=== PATIENT | female | born 1935 | race Caucasian/White ===

== ENCOUNTER 2016-11-22 07:45 | Inpatient (IN) | payer OTHER ==
--- NOTE | 2016-11-22 07:57 | PDOC ---
History of Present Illness - General Chief Complaint: Pain, Acute Stated Complaint: ABD PAIN Time Seen by Provider: 11/22/16 07:57 - History of Present Illness Initial Comments: 11/22/16 08:02 The patient is a 78 y/o female with a PMHx of C.diff., anemia, bowel obstructions, GI bleeds, chronic UTIs, DM, who presents to the ER complaining of one episode of vomiting this morning. The pt states that her nurse aid gave her pasta and banana that didn't taste good. The pt is also complaining of mild chest pain, 2/10, pressure like, mid sternal that started at night. It is associated with SOB. SHe denies cough, palpitations, dizziness. The pt denies abdominal pain, cjhest pain, SOB, cough. She denies fever, chills. Past History - Past Medical History Allergies/Adverse Reactions: Allergies Allergy/AdvReac Type Severity Reaction Status Date / Time No Known Allergies Allergy Verified 11/22/16 07:57 Home Medications: Ambulatory Orders Carbidopa/Levodopa [Carbidopa-Levodopa 25-100 Tab] 1 each PO QID 05/14/16 Cyanocobalamin (Vitamin B-12) [Vitamin B-12] 1,000 mcg PO DAILY 05/14/16 Ferrous Sulfate 325 mg PO DAILY 05/14/16 Mirtazapine 30 mg PO DAILY 05/14/16 Quetiapine Fumarate [Seroquel -] 12.5 mg PO HS 05/14/16 Acetaminophen [Tylenol -] 1,000 mg PO Q6H PRN #100 tablet 05/15/16 Dextromethorphan Polistirex [Delsym] 30 mg PO BID #100 ml 05/15/16 Anemia: Yes Asthma: No Cancer: Yes (cervical, gallbladder) Cardiac Disorders: Yes (htn) CVA: No COPD: No CHF: No Dementia: No Diabetes: Yes (no meds) GI Disorders: Yes (EGD) Disorders: No HTN: Yes (no meds) Hypercholesterolemia: Yes HIV: No Kidney Stones: Yes Liver Disease: No Psychiatric Problems: Yes (depression) Suicide Attempt (Hx): No Seizures: No Thyroid Disease: No - Surgical History Abdominal Surgery: Yes (colon resec 2013) Appendectomy: No Cardiac Surgery: No Cholecystectomy: Yes Lung Surgery: No Neurologic Surgery: No - Immunization History Td Vaccination: Yes TDAP Vaccination: Yes Immunization Up to Date: Yes - Psycho/Social/Smoking Cessation Hx Anxiety: No Suicidal Ideation: No Smoking Status: No Smoking History: Never smoked Years of Tobacco Use: 0 Have you smoked in the past 12 months: No Number of Cigarettes Smoked Daily: 0 Cigars Per Day: 0 Information on smoking cessation initiated: No Hx Alcohol Use: No Drug/Substance Use Hx: No Substance Use Type: None Hx Substance Use Treatment: No Review of Systems - Review of Systems Able to Perform ROS?: Yes Comments:: 11/22/16 08:33 REVIEW OF SYSTEMS CONSTITUTIONAL: Absent: fever, chills, diaphoresis, generalized weakness, malaise, loss of appetite, weight change HEENT: Absent: rhinorrhea, nasal congestion, throat pain, throat swelling, difficulty swallowing CARDIOVASCULAR: chest pain Absent: syncope, palpitations, irregular heart rate, lightheadedness, peripheral edema RESPIRATORY: shortness of breath Absent: cough, dyspnea with exertion, orthopnea, wheezing, stridor, hemoptysis GASTROINTESTINAL: Absent: abdominal pain, abdominal distension, nausea, vomiting, diarrhea, constipation, melena, hematochezia GENITOURINARY: Absent: dysuria, frequency, urgency, hesitancy, hematuria, flank pain, genital pain MUSCULOSKELETAL: Absent: myalgia, arthralgia, joint swelling, back pain, neck pain SKIN: Absent: rash, itching, pallor NEUROLOGIC: Absent: headache, focal weakness or paresthesias, dizziness, unsteady gait, seizure, mental status changes PSYCHIATRIC: Absent: anxiety, depression *Physical Exam - Vital Signs Last Vital Signs Temp Pulse Resp BP Pulse Ox 98.4 F 75 20 164/77 97 11/22/16 07:49 11/22/16 07:49 11/22/16 07:49 11/22/16 07:49 11/22/16 07:49 - Physical Exam Comments: 11/22/16 08:34 GENERAL: The patient is awake, alert, and fully oriented, in no acute distress. HEAD: Normal with no signs of trauma. EYES: extraocular movements intact, sclera anicteric, conjunctiva clear. No ptosis. ENT: oropharynx clear without exudates, moist mucous membranes. NECK: Trachea midline, full range of motion, supple. LUNGS: Breath sounds equal, clear to auscultation bilaterally, no wheezes, no crackles, no accessory muscle use. HEART: Regular rate and rhythm, S1, S2 without murmur, rub or gallop. ABDOMEN: Soft, nontender, nondistended, normoactive bowel sounds, no guarding, no rebound, no hepatosplenomegaly, no masses. EXTREMITIES: warm, well-perfused, no edema. NEUROLOGICAL: Normal speech, no facial asymmetry, gait not observed. PSYCH: Normal mood, normal affect. SKIN: Warm, dry, normal turgor ED Treatment Course - LABORATORY CBC & Chemistry Diagram: 11/22/16 08:30 11/22/16 08:16 Medical Decision Making - Medical Decision Making 11/22/16 08:35 The pt is a 81 year old female who presents with mild chest pain and vomiting x 1. We ordered cardiac profile, EKG, CBC, CMP, UA, NS 1 L. 11/22/16 10:53 EKG: NSR at 72, left axis deviation, left ventricular hypertrophy, flat T-wave in 1, aVL, V6, early R-wave progression, poor R wave progression, no ST changes Th pt was found to have UTI. She was given Rocephin. The pt was accepted by hospitalist to observation telemetry. *DC/Admit/Observation/Transfer Diagnosis at time of Disposition: UTI (lower urinary tract infection), Chest pain
[2016-11-22] MEDS ORDERED: SODIUM CHLORIDE 1,000 ML IV STA (08:07)
[2016-11-22 08:41] LABS: MCH 30.8 pg (25.7-33.7); MCHC 32.6 g/dl (32.0-36.0); MEAN CELL VOLUME 94.6 fl (80-96); MEAN PLT VOLUME 10.8 fl (7.5-11.1); RDW 14.1 % (11.6-15.6); WHITE BLOOD COUNT 5.2 K/mm3 (4.0-10.0)
--- NOTE | 2016-11-22 08:43 | PDOC ---
Attending Attestation - Medical Decision Making 11/22/16 09:24 Radiology report: CXR Impression: Chronically deformed shoulders with degenerative changes. Sclerotic unfolded aorta. Weak inspiration. No acute pathology. No change since 05/14/2016. Reported by Rayo Maldonado MD Reviewed by Dr. Santana <Betzaida Hinojosa - Last Filed: 11/22/16 09:24> - Resident Resident Name: Ольга Shirley - ED Attending Attestation I have performed the following: I have examined & evaluated the patient, The case was reviewed & discussed with the resident, I agree w/resident's findings & plan, Exceptions are as noted - HPI HPI: 11/22/16 08:47 The patient is a 81-year-old female, with a significant past medical history of diabetes, status post colon resection, who presents to the emergency department with constant chest pressure that began last night, after eating. She reports nausea with 1 episode of vomiting this morning. - Physicial Exam PE: 11/22/16 08:43 The patient is well-appearing and in no acute distress Abdomen is soft and nontender EKG noted: Normal sinus rhythm at 72, left axis deviation, left ventricular hypertrophy, flat T-wave in 1, aVL, V6, early R-wave progression, poor R wave progression, no ST changes 11/22/16 08:48 11/22/16 09:21 Chest x-ray noted, no acute cardiopulmonary disease CBC noted Urinalysis noted, with 3+ leukocyte esterase Chemistries pending - Medical Decision Making 11/22/16 08:48 She is well-appearing and in no acute distress Labs and chest x-ray ordered 11/22/16 09:39 Urinalysis noted, with bacteriuria and pyuria Will administer IV ceftriaxone 11/22/16 10:09 Labs noted Clinical impression: Intermittent chest pain, possible acute coronary syndrome Urinary tract infection Will place on observation for further evaluation and treatment Case discussed in detail with admitting provider including history, physical exam and ancillary studies. Admitting physician has assumed care for the patient, will follow all pending diagnostics and will complete the evaluation and treatment. <Rayo Santana - Last Filed: 11/22/16 10:09> Discharge Disposition - Discharge Dispostion Last Admission D/C Date: 12/03/13 Admit: Yes <Rayo Santana - Last Filed: 11/22/16 10:09> - Diagnosis UTI (lower urinary tract infection), Chest pain
[2016-11-22 09:09] LABS: URINE APPEARANCE CLOUDY; URINE BILIRUBIN NEGATIVE (NEGATIVE); URINE BLOOD NEGATIVE (NEGATIVE); URINE COLOR YELLOW; URINE GLUCOSE (UA) NEGATIVE (NEGATIVE); URINE KETONE TRACE (NEGATIVE); URINE NITRITE POSITIVE (NEGATIVE); URINE PROTEIN NEGATIVE (NEGATIVE); URINE UROBILINOGEN NEGATIVE E.U./dl (0.2-1.0)
[2016-11-22 09:18] LABS: URINE LEUK ESTERASE 3+ (NEGATIVE)
[2016-11-22 09:26] LABS: URINE BACTERIA MANY /hpf (NONE SEEN); URINE HYALINE CAST 3 /lpf; URINE MUCUS RARE; URINE RBC 2 /hpf (0-3); URINE WBC 454 /hpf (3-5)
[2016-11-22] MEDS ORDERED: CEFTRIAXONE 1 GM in DEXTROSE 5%-WATER - 50 ML IVPB ONE (09:39)
[2016-11-22] MEDS ORDERED: CEFTRIAXONE 50 ML ONE (09:42)
[2016-11-22 10:00] LABS: ALBUMIN 3.7 g/dl (3.4-5.0); ANION GAP 10 (8-16); BILIRUBIN,TOTAL 0.6 mg/dL (0.2-1.0); CO2 28 mmol/L (21-32); CREATININE 0.8 mg/dL (0.55-1.02); GLUCOSE,RANDOM 156 mg/dL (74-106); SGPT/ALT 14 U/L (12-78); TOT PROT 7.9 g/dl (6.4-8.2)
[2016-11-22 10:01] LABS: ALK PHOS 153 U/L (45-117)
[2016-11-22 10:02] LABS: SGOT/AST 32 U/L (15-37)
[2016-11-22 10:18] LABS: TROPONIN I < 0.02 ng/ml (0.00-0.05)
[2016-11-22 13:10] LABS: PLATELET COUNT 161 K/MM3 (134-434)
[2016-11-22 13:11] LABS: PLATELET COMMENT2 FEW LARGE PLTS; PLATELET ESTIMATE ADEQUATE (NORMAL)
--- NOTE | 2016-11-22 14:32 | HP ---
CHIEF COMPLAINT: chest pain and nausea PCP: Dr. Aide Patino HISTORY OF PRESENT ILLNESS: 81 yo F with PMH anemia, CDiff, bowel obstruction s/ p colon resection (2013), GI bleed, chronic UTI, diet-controlled NIDDM, cervical CA s/p hysterectomy, gallbladder CA s/p cholecystectomy and radiation, HTN, HLD, GERD, depression, mild dementia, sacral decubitus ulcer, and Parkinson 's presents to ED today with one episode of nausea without vomiting this morning. To this provider, patient stated she had substernal chest pain this morning while her health aide was turning her, without aggravating or alleviating factors, that was accompanied by SOB. She currently denies CP, SOB, N/V, abdominal pain, fever, or chills. ER course was notable for: (1) Troponin <0.02; EKG NSR at 72, left axis deviation, left ventricular hypertrophy, no ST changes (2) UA with 3+ leukocyte esterase and WBC 454 Recent Travel: No PAST MEDICAL HISTORY: anemia, CDiff, bowel obstruction, GI bleed, chronic UTI, diet-controlled NIDDM, cervical and gallblader CA with radiation, HTN, HLD, GERD , depression, mild dementia, sacral decubitus ulcer, Parkinson's PAST SURGICAL HISTORY: colon resection 2013, cholecystectomy, hysterectomy Social History: Lives in senior apartment complex with 24-hour health aide. 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 Smoking: Never smoked Alcohol: No Drugs: No Family History: mother and several siblings with MIs and heart failure Allergies: No Known Allergies Allergy (Verified 11/22/16 07:57) HOME MEDICATIONS: Home Medications Medication Instructions Recorded Carbidopa/Levodopa 1 each PO QID 05/14/16 [Carbidopa-Levodopa 25-100 Tab] Cyanocobalamin (Vitamin B-12) 1,000 mcg PO DAILY 05/14/16 [Vitamin B-12] Ferrous Sulfate 325 mg PO DAILY 05/14/16 Mirtazapine 30 mg PO DAILY 05/14/16 Quetiapine Fumarate [Seroquel -] 12.5 mg PO HS 05/14/16 Acetaminophen [Tylenol -] 1,000 mg PO Q6H PRN #100 tablet 05/15/16 Dextromethorphan Polistirex 30 mg PO BID #100 ml 05/15/16 [Delsym] REVIEW OF SYSTEMS CONSTITUTIONAL: Absent: fever, chills, diaphoresis, weakness, malaise, loss of appetite, weight change HEENT: Absent: rhinorrhea, nasal congestion, throat pain, throat swelling, difficulty swallowing, mouth swelling, ear pain, eye pain, visual changes CARDIOVASCULAR: chest pain Absent: syncope, palpitations, irregular heart rate, lightheadedness, peripheral edema RESPIRATORY: shortness of breath Absent: cough, dyspnea with exertion, orthopnea, wheezing, stridor, hemoptysis GASTROINTESTINAL: abdominal pain, nausea, vomiting Absent: abdominal distension, diarrhea, constipation, melena, hematochezia GENITOURINARY: Absent: dysuria, frequency, urgency, hesitancy, hematuria, flank pain, genital pain MUSCULOSKELETAL: Absent: myalgia, arthralgia, joint swelling, back pain, neck pain SKIN: Absent: rash, itching, pallor HEMATOLOGIC/IMMUNOLOGIC: Absent: easy bleeding, easy bruising, lymphadenopathy, frequent infections ENDOCRINE: Absent: unexplained weight gain, unexplained weight loss, heat intolerance, cold intolerance NEUROLOGIC: + subjective left arm weakness, + bowel and bladder incontinence at baseline, periods of confusion at baseline Absent: headache, dizziness, unsteady gait, seizure PSYCHIATRIC: depression Absent: anxiety, suicidal or homicidal ideation, hallucinations. PHYSICAL EXAMINATION Vital Signs - 24 hr 11/22/16 11/22/16 11/22/16 07:49 09:24 10:00 Temperature 98.4 F 97.4 F L Pulse Rate 75 Pulse Rate [ 72 Left Radial] Respiratory 20 18 Rate Blood Pressure 164/77 Blood Pressure 173/87 [Left Arm] O2 Sat by Pulse 97 98 96 Oximetry (%) 11/22/16 13:14 Temperature Pulse Rate Pulse Rate [ 70 Left Radial] Respiratory Rate Blood Pressure Blood Pressure 160/79 [Left Arm] O2 Sat by Pulse 95 Oximetry (%) GENERAL: Awake, alert, in no acute distress. Oriented to person only. HEAD: Normal with no signs of trauma. EYES: Pupils equal, round and reactive to light, extraocular movements intact, sclera anicteric, conjunctiva clear. No lid lag. EARS, NOSE, THROAT: Ears normal, nares patent, oropharynx clear without exudates. Moist mucous membranes. NECK: Normal range of motion, supple without lymphadenopathy, JVD, or masses. LUNGS: Breath sounds equal, clear to auscultation bilaterally. No wheezes, and no crackles. No accessory muscle use. HEART: Regular rate and rhythm, normal S1 and S2 without murmur, rub or gallop. ABDOMEN: Soft, nontender, not distended, normoactive bowel sounds, no guarding, no rebound, no masses. No hepatomegaly or splenomegaly. MUSCULOSKELETAL: Normal range of motion at all joints. No bony deformities or tenderness. No CVA tenderness. UPPER EXTREMITIES: 2+ pulses, warm, well-perfused. No cyanosis. No clubbing. No peripheral edema. Muscle strength 4/5 LOWER EXTREMITIES: 2+ pulses, warm, well-perfused. No calf tenderness. No peripheral edema. Muscle strength 4/5 NEUROLOGICAL: Cranial nerves II-XII intact. Normal speech. Gait not observed. GCS: E 4, V 4, M 6 = 14 PSYCHIATRIC: Cooperative. Good eye contact. Appropriate mood and affect. SKIN: Warm, dry, normal turgor, no rashes or lesions noted, normal capillary refill, + old surgical scar to abdomen Laboratory Tests 11/22/16 11/22/16 11/22/16 08:16 08:30 08:59 WBC 5.2 RBC 4.85 D Hgb 14.9 D Hct 45.9 H D MCV 94.6 MCHC 32.6 RDW 14.1 Plt Count 161 D MPV 10.8 Platelet Estimate Adequate Platelet Comment Few large plts Sodium 142 Potassium 5.1 D Chloride 104 Carbon Dioxide 28 Anion Gap 10 BUN 23 H D Creatinine 0.8 D Creat Clearance w eGFR > 60 Random Glucose 156 H Calcium 9.0 Total Bilirubin 0.6 AST 32 D ALT 14 D Alkaline Phosphatase 153 H D Creatine Kinase 106 Troponin I < 0.02 Total Protein 7.9 Albumin 3.7 Urine Color Yellow Urine Appearance Cloudy Urine pH 5.0 D Ur Specific [place] 1.016 Urine Protein Negative Urine Glucose (UA) Negative Urine Ketones Trace H Urine Blood Negative Urine Nitrite Positive Urine Bilirubin Negative Urine Urobilinogen Negative Ur Leukocyte Esterase 3+ H Urine RBC 2 Urine WBC 454 Ur Epithelial Cells Rare Urine Bacteria Many Hyaline Casts 3 Urine Mucus Rare ASSESSMENT/PLAN: 81 yo F with PMH anemia, bowel obstruction s/p colon resection , GI bleed, chronic UTI, CDiff, diet-controlled NIDDM, cervical and gallbladder CA, HTN, HLD, GERD, depression, dementia, and Parkinson's, being placed on observation for chest pain and UTI. 1. Chest Pain --clinically improved, pain and SOB have resolved --r/o ACS: first troponin negative, two pending; ECG not suggestive of acute ischemic event; serial ECG;s; CXR unremarkable; telemetry monitoring; echo ordered; cardiology consult requested; will keep NPO if cardiology wants to stress tomorrow --r/p PE: Wells score low to intermediate since we don't know if patient has an active malignancy (h/o multiple cancers); will get d-dimer --r/o GI etiology: h/o GERD, will start protonix 2. Pyuria --no fever, no leukocytosis, denies symptoms but poor historian, WBCs 454 --ceftriaxone x 1 given in ED --will continue ceftriaxone for now --cultures pending 3. Nausea/Vomiting --resolved 4. NIDDM --diet-controlled, on no home meds --Novolog sliding scale coverage 5. Parkinson's --at baseline --continue Sinemet 6. Depression --hold Remeron for now to assess mental status 7. DVT prophylaxis --SCDs, oob, ambulation 8. F/E/N - Fluids: PO intake adequate - Electrolytes: Monitor and replace as needed - Nutrition: Diabetic, low-sodium diet. Dispo: continues to require observation. Full code. Visit type - Emergency Visit Emergency Visit: Yes ED Registration Date: 11/22/16 Care time: The patient presented to the Emergency Department on the above date and was hospitalized for further evaluation of their emergent condition. - New Patient This patient is new to me today: No - Critical Care Critical Care patient: No
--- NOTE | 2016-11-22 16:15 | EKG ---
Test Reason : Blood Pressure : / mmHG Vent. Rate : 069 BPM Atrial Rate : 069 BPM P-R Int : 154 ms QRS Dur : 096 ms QT Int : 420 ms P-R-T Axes : 027 -31 041 degrees QTc Int : 450 ms POOR DATA QUALITY, INTERPRETATION MAY BE ADVERSELY AFFECTED NORMAL SINUS RHYTHM LEFT AXIS DEVIATION MINIMAL VOLTAGE CRITERIA FOR LVH, MAY BE NORMAL VARIANT ABNORMAL ECG WHEN COMPARED WITH ECG OF 14-MAY-2016 20:27, NO SIGNIFICANT CHANGE WAS FOUND Confirmed by ARCHIE ALMENDAREZ MD ([id number]) on 11/22/2016 4:15:40 PM Referred By: Confirmed By:ARCHIE ALMENDAREZ MD
[2016-11-22] MEDS: INSULIN SLIDING SCALE (NOVOLOG) 1 VIAL SQ SCH ×2 (16:19→22:38)
[2016-11-22] MEDS ORDERED: CARBIDOPA/LEVODOPA 25/100 TABLET (FP) ONE (16:22)
[2016-11-22] MEDS ORDERED: INSULIN REGULAR HUMAN 100 UNITS/ML *VIAL ONE (16:22)
--- NOTE | 2016-11-22 17:57 | CON.CARD ---
Cardiology Consult (text) - Consultation Consultation Note: CC: cp 81 yo F with PMH HTN, HLD,, anemia, CDiff, bowel obstruction s/p colon resection in 2013, GI bleed, chronic UTI, diet-controlled NIDDM, cervical CA s/ p hysterectomy, gallbladder CA s/p cholecystectomy and radiation, GERD, depression, mild dementia/Parkinson's, sacral decubitus ulcer, presents with CP in setting of nausea/abdominal pain. Episode of nausea this morning. Was unable to vomit. + abdominal pain and dizziness at the time. Subsequently became agitated and developed sob/cp. History may be unreliable as patient can't provide further details about cp and daughter received information second hand. By the time she arrived at the ER, symptoms had resolved. Wheelchair bound at baseline. Denies recent sob, palps, orthopnea, pnd, worsened LE edema (intermittent, mild at baseline), bleeding. Denies recent f/c/s, preceding GI sx's, cough, congestion, recent poor po intake , headache, visual disturbances. PAST MEDICAL HISTORY: anemia, CDiff, bowel obstruction, GI bleed, chronic UTI, diet-controlled NIDDM, cervical and gallblader CA with radiation, HTN, HLD, GERD , depression, mild dementia, sacral decubitus ulcer, Parkinson's PAST SURGICAL HISTORY: colon resection 2014, cholecystectomy, hysterectomy Social History: Lives in senior apartment complex with 24-hour health aide. 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 Smoking: Never smoked Alcohol: No Drugs: No Family History: mother and several siblings with MIs and heart failure Ambulatory Orders Carbidopa/Levodopa [Carbidopa-Levodopa 25-100 Tab] 1 each PO QID 05/14/16 Cyanocobalamin (Vitamin B-12) [Vitamin B-12] 1,000 mcg PO DAILY 05/14/16 Ferrous Sulfate 325 mg PO DAILY 05/14/16 Mirtazapine 30 mg PO DAILY 05/14/16 Quetiapine Fumarate [Seroquel -] 12.5 mg PO HS 05/14/16 Acetaminophen [Tylenol -] 1,000 mg PO Q6H PRN #100 tablet 05/15/16 Dextromethorphan Polistirex [Delsym] 30 mg PO BID #100 ml 05/15/16 Current Medications Carbidopa/Levodopa (Sinemet 25/100 -) 1 each PO QID [facility] Ferrous Sulfate (Feosol -) 325 mg PO DAILY [facility] Pantoprazole Sodium (Protonix 40mg Ivpb (Pre-Docked)) 100 mls @ 200 mls/hr IVPB DAILY [facility] Ceftriaxone Sodium (Rocephin 1gm Ivpb (Pre-Docked)) 50 mls @ 100 mls/hr IVPB DAILY [facility] Insulin Aspart (Novolog Vial Sliding Scale -) 1 vial SQ ACHS [facility] PRN Reason: Protocol Last Admin: 11/22/16 16:19 Dose: 2 unit Vital Signs - 24 hr 11/22/16 11/22/16 11/22/16 07:49 09:24 10:00 Temperature 98.4 F 97.4 F L Pulse Rate 75 Pulse Rate [ 72 Left Radial] Respiratory 20 18 Rate Blood Pressure 164/77 Blood Pressure 173/87 [Left Arm] O2 Sat by Pulse 97 98 96 Oximetry (%) 11/22/16 13:14 Temperature Pulse Rate Pulse Rate [ 70 Left Radial] Respiratory Rate Blood Pressure Blood Pressure 160/79 [Left Arm] O2 Sat by Pulse 95 Oximetry (%) Intake & Output 11/20/16 11/21/16 11/22/16 11/23/16 07:59 07:59 07:59 07:59 Weight 201 lb NAD, calm JVD flat, neck supple RRR nl s1, s2 no mrg bibasilar dullness vs. poor effort ext with trace dependent edema. no cyanosis or clubbing + bs soft nt nd + dp/pt no jaundice, diaphoresis no carotid bruit CBC, BMP 11/22/16 08:30 11/22/16 08:16 Laboratory Tests 11/22/16 11/22/16 11/22/16 08:16 08:59 17:30 D-Dimer Total Bilirubin 0.6 AST 32 D ALT 14 D Alkaline Phosphatase 153 H D Troponin I < 0.02 B-Natriuretic Peptide 121.34 Albumin 3.7 Urine Nitrite Positive Ur Leukocyte Esterase 3+ H 11/22/16 11/22/16 17:30 17:30 D-Dimer 227 Total Bilirubin AST ALT Alkaline Phosphatase Troponin I < 0.02 B-Natriuretic Peptide Albumin Urine Nitrite Ur Leukocyte Esterase tele sr, pvc EKG: nsr, lad, lvh. no acute ischemic changes CXR: elevated rt hemidiaphragm, no acute infiltrate. echo 2013: nl lv/rv size/fn. E A reversal, mod MR. 81 yo F with PMH HTN, HLD,, anemia, CDiff, bowel obstruction s/p colon resection in 2014, GI bleed, chronic UTI, diet-controlled NIDDM, cervical CA s/ p hysterectomy, gallbladder CA s/p cholecystectomy and radiation, GERD, depression, mild dementia/Parkinson's, sacral decubitus ulcer, presents with CP in setting of nausea/abdominal pain. CP - atypical sx's. History unclear/unreliable. CE's neg x 2 and ekg without ischemic changes. Echo for further evaluation - d-dimer negative. - tx of underlying medical condition/uti per pmd. HTN - not on home anti-hypertensives. If bp remains elevated would start amlodipine 5 mg/day HL - not on statin, not unreasonable give age and comorbidities. defer to outpatient md.
[2016-11-22] MEDS: CARBIDOPA/LEVODOPA 25/100 TABLET (FP) PO SCH ×2 (18:17→22:38)
[2016-11-22] MEDS: FERROUS SO4 325 MG TABLET (FP) PO SCH (18:19)
[2016-11-22] MEDS ORDERED: PANTOPRAZOLE SODIUM 40 MG VIAL ONE (18:23)
[2016-11-22] MEDS: PANTOPRAZOLE SODIUM 100 ML IVPB SCH (18:32)
[2016-11-22 18:40] VITALS: BMI 28.8
[2016-11-23] MEDS: INSULIN SLIDING SCALE (NOVOLOG) 1 VIAL SQ SCH ×4 (06:08→22:19)
[2016-11-23 07:34] LABS: BASOPHIL 0.5 % (0-2.0); EOSINOPHIL 2.6 % (0-4.5); MCHC 33.2 g/dl (32.0-36.0); MEAN CELL VOLUME 93.5 fl (80-96); MEAN PLT VOLUME 10.7 fl (7.5-11.1); NEUTROPHILS 69.9 % (42.8-82.8); PLATELET COUNT 158 K/MM3 (134-434); RDW 14.3 % (11.6-15.6)
[2016-11-23 07:52] LABS: ALBUMIN 3.3 g/dl (3.4-5.0); ANION GAP 8 (8-16); CALCIUM 8.5 mg/dL (8.5-10.1); CO2 27 mmol/L (21-32); CREATININE 0.7 mg/dL (0.55-1.02); GLUCOSE,RANDOM 136 mg/dL (74-106); MAGNESIUM 1.9 mg/dL (1.8-2.4); PHOSPHOROUS 2.6 mg/dL (2.5-4.9); SGOT/AST 16 U/L (15-37); SGPT/ALT 13 U/L (12-78)
[2016-11-23 07:53] LABS: ALK PHOS 135 U/L (45-117); BILIRUBIN,TOTAL 0.5 mg/dL (0.2-1.0); TOT PROT 6.8 g/dl (6.4-8.2)
--- NOTE | 2016-11-23 09:40 | DS ---
Physical Exam: SUBJECTIVE: Patient seen and examined. Having discomfort in right hand from blood draw. When asked if having chest pain, shakes head yes, but cannot elaborate on location, severity, or timing. OBJECTIVE: Vital Signs Period Temp Pulse Resp BP Sys/Ramírez Pulse Ox Last 24 Hr 97.4 F-98.1 F 70-88 20-20 124-163/66-107 95-98 PHYSICAL EXAM GENERAL: The patient is awake, alert, in no acute distress. Oriented to person and place. HEAD: Normal with no signs of trauma. EYES: PERRL, extraocular movements intact, sclera anicteric, conjunctiva clear. ENT: Ears normal, nares patent, oropharynx clear without exudates, moist mucous membranes. NECK: Trachea midline, full range of motion, supple. LUNGS: Breath sounds equal, clear to auscultation bilaterally, no wheezes, no crackles, no accessory muscle use. HEART: Regular rate and rhythm, S1, S2 without murmur, rub or gallop. ABDOMEN: Soft, nontender, nondistended, normoactive bowel sounds, no guarding, no rebound, no hepatosplenomegaly, no masses. EXTREMITIES: 2+ pulses throughout, warm, well-perfused, bilateral LE trace dependent edema NEUROLOGICAL: Cranial nerves II through XII grossly intact. Normal speech, gait not observed. LABS Laboratory Results - last 24 hr 11/22/16 11/22/16 11/22/16 16:16 17:30 17:30 WBC RBC Hgb Hct MCV MCHC RDW Plt Count MPV Neutrophils % Lymphocytes % Monocytes % Eosinophils % Basophils % D-Dimer Sodium Potassium Chloride Carbon Dioxide Anion Gap BUN Creatinine Creat Clearance w eGFR POC Glucometer [phone] Random Glucose Calcium Phosphorus Magnesium Total Bilirubin AST ALT Alkaline Phosphatase Troponin I < 0.02 B-Natriuretic Peptide 121.34 Total Protein Albumin 11/22/16 11/22/16 11/23/16 17:30 22:28 05:35 WBC 6.0 RBC 4.51 Hgb 14.0 Hct 42.2 MCV 93.5 MCHC 33.2 RDW 14.3 Plt Count 158 MPV 10.7 Neutrophils % 69.9 Lymphocytes % 19.9 D Monocytes % 7.1 Eosinophils % 2.6 D Basophils % 0.5 D-Dimer 227 Sodium Potassium Chloride Carbon Dioxide Anion Gap BUN Creatinine Creat Clearance w eGFR POC Glucometer 153 Random Glucose Calcium Phosphorus Magnesium Total Bilirubin AST ALT Alkaline Phosphatase Troponin I B-Natriuretic Peptide Total Protein Albumin 11/23/16 11/23/16 05:35 06:03 WBC RBC Hgb Hct MCV MCHC RDW Plt Count MPV Neutrophils % Lymphocytes % Monocytes % Eosinophils % Basophils % D-Dimer Sodium 140 Potassium 4.1 Chloride 105 Carbon Dioxide 27 Anion Gap 8 BUN 21 H Creatinine 0.7 Creat Clearance w eGFR > 60 POC Glucometer 156 Random Glucose 136 H Calcium 8.5 Phosphorus 2.6 Magnesium 1.9 D Total Bilirubin 0.5 AST 16 D ALT 13 Alkaline Phosphatase 135 H Troponin I B-Natriuretic Peptide Total Protein 6.8 Albumin 3.3 L HOSPITAL COURSE: Date of Admission:11/22/16 Date of Discharge: 11/23/16 Discharge Summary Reason For Visit: UTI,CHEST PAIN Current Active Problems Chest pain (Acute) UTI (lower urinary tract infection) (Acute) - Instructions Referrals: Aide Patino [Primary Care Provider] - - Home Medications Comprehensive Discharge Medication List: Ambulatory Orders Carbidopa/Levodopa [Carbidopa-Levodopa 25-100 Tab] 1 each PO QID 05/14/16 Cyanocobalamin (Vitamin B-12) [Vitamin B-12] 1,000 mcg PO DAILY 05/14/16 Ferrous Sulfate 325 mg PO DAILY 05/14/16 Mirtazapine 30 mg PO DAILY 05/14/16 Quetiapine Fumarate [Seroquel -] 12.5 mg PO HS 05/14/16 Acetaminophen [Tylenol -] 1,000 mg PO Q6H PRN #100 tablet 05/15/16
[2016-11-23] MEDS: FERROUS SO4 325 MG TABLET (FP) PO SCH (10:03)
[2016-11-23] MEDS: PANTOPRAZOLE SODIUM 100 ML IVPB SCH (10:03)
[2016-11-23] MEDS: CEFTRIAXONE 50 ML IVPB SCH (10:03)
[2016-11-23] MEDS: CARBIDOPA/LEVODOPA 25/100 TABLET (FP) PO SCH ×4 (10:03→22:19)
[2016-11-23 11:30] LABS: TROPONIN I < 0.02 ng/ml (0.00-0.05)
--- NOTE | 2016-11-23 12:01 | PN ---
Progress Note (short form) - Note Progress Note: s: no cp sob palps dizzy o: Vital Signs Period Temp Pulse Resp BP Sys/Ramírez Pulse Ox Last 24 Hr 97.4 F-98.1 F 70-88 20-20 124-163/66-107 95-98 NAD, calm JVD flat, neck supple RRR nl s1, s2 no mrg bibasilar dullness vs. poor effort ext with trace dependent edema. no cyanosis or clubbing + bs soft nt nd no jaundice, diaphoresis awake, alert, mildly confused Current Medications Generic Name Dose Route Start Last Admin Trade Name Freq PRN Reason Stop Dose Admin Carbidopa/Levodopa 1 each 11/22/16 18:00 11/23/16 10:03 Sinemet 25/100 - PO 1 each QID MIMI Administration Ferrous Sulfate 325 mg 11/22/16 15:00 11/23/16 10:03 Feosol - PO 325 mg DAILY MIMI Administration Pantoprazole Sodium 100 mls @ 200 mls/hr 11/22/16 17:15 11/23/16 10:03 Protonix 40mg Ivpb (Pre-Docked) IVPB 200 mls/hr DAILY MMII Administration Ceftriaxone Sodium 50 mls @ 100 mls/hr 11/23/16 10:00 11/23/16 10:03 Rocephin 1gm Ivpb (Pre-Docked) IVPB 100 mls/hr DAILY MIMI Administration Insulin Aspart 1 vial 11/22/16 16:30 11/23/16 06:08 Novolog Vial Sliding Scale - SQ Not Given ACHS MIMI Protocol CBC, BMP 11/23/16 05:35 11/23/16 05:35 tele sr, occ pvcs EKG: nsr, lad, lvh. no acute ischemic changes CXR: elevated rt hemidiaphragm, no acute infiltrate. echo 2012: nl lv/rv size/fn. E A reversal, mod MR. a/p:81 yo F with PMH HTN, HLD,, anemia, CDiff, bowel obstruction s/p colon resection in 2014, GI bleed, chronic UTI, diet-controlled NIDDM, cervical CA s/ p hysterectomy, gallbladder CA s/p cholecystectomy and radiation, GERD, depression, mild dementia/Parkinson's, sacral decubitus ulcer, presents with CP in setting of nausea/abdominal pain. CP - atypical sx's. History unclear/unreliable. Currently no cp. CE's neg x 2 and ekg without ischemic changes. Echo for further evaluation, if benign no further cardiac testing for now, monitor for sx recurrence, can consider ischemic testing as outpt if symptoms. - d-dimer negative. - tx of underlying medical condition/uti per pmd. HTN - not on home anti-hypertensives. If bp remains elevated would start amlodipine 5 mg/day HL - not on statin, not unreasonable give age and comorbidities. defer to outpatient md.
[2016-11-23] MEDS ORDERED: amLODIPine BESYLATE 5 MG TABLET (FP) PO ONE (14:45)
--- NOTE | 2016-11-23 15:12 | PN ---
Physical Exam: SUBJECTIVE: Patient seen and examined. Denies chest pain at this time. Denies chest pain in the past, states she came to the hospital because she felt nauseous after eating "bad pasta." OBJECTIVE: Vital Signs Period Temp Pulse Resp BP Sys/Ramírez Pulse Ox Last 24 Hr 97.4 F-99.0 F 72-88 18-20 124-176/64-107 96-98 GENERAL: The patient is awake, alert, oriented to person and place. HEAD: Normal with no signs of trauma. EYES: PERRL, extraocular movements intact, sclera anicteric, conjunctiva clear. No ptosis. LUNGS: Breath sounds equal, clear to auscultation bilaterally, no wheezes, no crackles, no accessory muscle use. HEART: Regular rate and rhythm, S1, S2 without murmur, rub or gallop. ABDOMEN: Soft, nontender, nondistended, normoactive bowel sounds, no guarding, no rebound, no hepatosplenomegaly, no masses. EXTREMITIES: 2+ pulses, warm, well-perfused, no edema. Bilateral mild, dependent lower extremity edema NEUROLOGICAL: Cranial nerves II through XII grossly intact. Normal speech, gait not observed. Laboratory Results - last 24 hr 11/22/16 11/22/16 11/22/16 16:16 17:30 17:30 WBC RBC Hgb Hct MCV MCHC RDW Plt Count MPV Neutrophils % Lymphocytes % Monocytes % Eosinophils % Basophils % D-Dimer Sodium Potassium Chloride Carbon Dioxide Anion Gap BUN Creatinine Creat Clearance w eGFR POC Glucometer [id number] Random Glucose Calcium Phosphorus Magnesium Total Bilirubin AST ALT Alkaline Phosphatase Troponin I < 0.02 B-Natriuretic Peptide 121.34 Total Protein Albumin 11/22/16 11/22/16 11/23/16 17:30 22:28 05:35 WBC 6.0 RBC 4.51 Hgb 14.0 Hct 42.2 MCV 93.5 MCHC 33.2 RDW 14.3 Plt Count 158 MPV 10.7 Neutrophils % 69.9 Lymphocytes % 19.9 D Monocytes % 7.1 Eosinophils % 2.6 D Basophils % 0.5 D-Dimer 227 Sodium Potassium Chloride Carbon Dioxide Anion Gap BUN Creatinine Creat Clearance w eGFR POC Glucometer 153 Random Glucose Calcium Phosphorus Magnesium Total Bilirubin AST ALT Alkaline Phosphatase Troponin I B-Natriuretic Peptide Total Protein Albumin 11/23/16 11/23/1617 05:35 06:03 11:48 WBC RBC Hgb Hct MCV MCHC RDW Plt Count MPV Neutrophils % Lymphocytes % Monocytes % Eosinophils % Basophils % D-Dimer Sodium 140 Potassium 4.1 Chloride 105 Carbon Dioxide 27 Anion Gap 8 BUN 21 H Creatinine 0.7 Creat Clearance w eGFR > 60 POC Glucometer 156 119 Random Glucose 136 H Calcium 8.5 Phosphorus 2.6 Magnesium 1.9 D Total Bilirubin 0.5 AST 16 D ALT 13 Alkaline Phosphatase 135 H Troponin I < 0.02 B-Natriuretic Peptide Total Protein 6.8 Albumin 3.3 L Active Medications Generic Name Dose Route Start Last Admin Trade Name Freq PRN Reason Stop Dose Admin Carbidopa/Levodopa 1 each 11/22/16 18:00 11/23/16 14:44 Sinemet 25/100 - PO 1 each QID MIMI Administration Ferrous Sulfate 325 mg 11/22/16 15:00 11/23/16 10:03 Feosol - PO 325 mg DAILY MIMI Administration Pantoprazole Sodium 100 mls @ 200 mls/hr 11/22/16 17:15 11/23/16 10:03 Protonix 40mg Ivpb (Pre-Docked) IVPB 200 mls/hr DAILY MIMI Administration Ceftriaxone Sodium 50 mls @ 100 mls/hr 11/23/16 10:00 11/23/16 10:03 Rocephin 1gm Ivpb (Pre-Docked) IVPB 100 mls/hr DAILY MIMI Administration Insulin Aspart 1 vial 11/22/16 16:30 11/23/16 12:02 Novolog Vial Sliding Scale - SQ Not Given ACHS [facility] Protocol ASSESSMENT/PLAN 81 yo F with PMH anemia, bowel obstruction s/p colon resection, GI bleed, chronic UTI, CDiff, diet-controlled NIDDM, cervical and gallbladder CA, HTN, HLD , GERD, depression, dementia, and Parkinson's, admitted for chest pain and UTI. 1. Chest Pain --clinically improved, pain and SOB have resolved --r/o ACS: troponin negative x 3; ECG not suggestive of acute ischemic event ; CXR unremarkable; telemetry monitoring; echo pending; per cardiology if echo is OK, no need for inpatient stress --r/p PE: D-dimer negative; no further indication for PE workup --r/o GI etiology: h/o GERD, continue protonix, no abdominal pain or nausea today 2. Pyuria --no fever, no leukocytosis, denies symptoms but poor historian, WBCs 454 --continue ceftriaxone (day #2) --culture growing LFGNB 3. Nausea/Vomiting --resolved 4. NIDDM --diet-controlled, on no home meds --Novolog sliding scale coverage 5. Parkinson's --at baseline --continue Sinemet 6. Depression --hold Remeron for now to assess mental status 7. DVT prophylaxis --SCDs, oob, ambulation 8. F/E/N - Fluids: PO intake adequate - Electrolytes: Monitor and replace as needed - Nutrition: Diabetic, low-sodium diet. Dispo: continues to require observation. Full code. Visit type - Emergency Visit Emergency Visit: Yes ED Registration Date: 11/22/16 Care time: The patient presented to the Emergency Department on the above date and was hospitalized for further evaluation of their emergent condition. - New Patient This patient is new to me today: No - Critical Care Critical Care patient: No
[2016-11-23] MEDS ORDERED: PT OWN MED DRAWER 7, Y5N ONE (17:51)
[2016-11-24] MEDS: INSULIN SLIDING SCALE (NOVOLOG) 1 VIAL SQ SCH ×3 (06:28→17:29)
[2016-11-24] MEDS: FERROUS SO4 325 MG TABLET (FP) PO SCH (09:19)
[2016-11-24] MEDS: CEFTRIAXONE 50 ML IVPB SCH (09:19)
[2016-11-24] MEDS: CARBIDOPA/LEVODOPA 25/100 TABLET (FP) PO SCH ×3 (09:19→17:29)
[2016-11-24] MEDS: PANTOPRAZOLE SODIUM 100 ML IVPB SCH (09:19)
[2016-11-24] MEDS ORDERED: amLODIPine BESYLATE 5 MG TABLET (FP) PO SCH (10:00)
--- NOTE | 2016-11-24 10:32 | DS ---
Physical Exam: SUBJECTIVE: Patient seen and examined OBJECTIVE: Vital Signs Period Temp Pulse Resp BP Sys/Ramírez Pulse Ox Last 24 Hr 98 F-98.2 F 72-78 18-20 149-174/74-96 93 PHYSICAL EXAM GENERAL: The patient is awake, alert, and fully oriented, in no acute distress. HEAD: Normal with no signs of trauma. EYES: PERRL, extraocular movements intact, sclera anicteric, conjunctiva clear. ENT: Ears normal, nares patent, oropharynx clear without exudates, moist mucous membranes. NECK: Trachea midline, full range of motion, supple. LUNGS: Breath sounds equal, clear to auscultation bilaterally, no wheezes, no crackles, no accessory muscle use. HEART: Regular rate and rhythm, S1, S2 without murmur, rub or gallop. ABDOMEN: Soft, nontender, nondistended, normoactive bowel sounds, no guarding, no rebound, no hepatosplenomegaly, no masses. EXTREMITIES: 2+ pulses, warm, well-perfused, no edema. NEUROLOGICAL: Cranial nerves II through XII grossly intact. Normal speech, gait not observed. PSYCH: Normal mood, normal affect. SKIN: Warm, dry, normal turgor, no rashes or lesions noted. LABS Laboratory Results - last 24 hr 11/23/16 11/24/16 22:09 06:21 POC Glucometer 181 130 HOSPITAL COURSE: Date of Admission:11/23/16 Date of Discharge: 11/24/16 Discharge Summary Reason For Visit: UTI,CHEST PAIN Current Active Problems Chest pain (Acute) UTI (lower urinary tract infection) (Acute) - Instructions Referrals: Aide Patino [Primary Care Provider] - - Home Medications Comprehensive Discharge Medication List: Ambulatory Orders Carbidopa/Levodopa [Carbidopa-Levodopa 25-100 Tab] 1 each PO QID 05/14/16 Cyanocobalamin (Vitamin B-12) [Vitamin B-12] 1,000 mcg PO DAILY 05/14/16 Ferrous Sulfate 325 mg PO DAILY 05/14/16 Mirtazapine 30 mg PO DAILY 05/14/16 Quetiapine Fumarate [Seroquel -] 12.5 mg PO HS 05/14/16 Acetaminophen [Tylenol -] 1,000 mg PO Q6H PRN #100 tablet 05/15/16
[2016-11-24 14:23] VITALS: BP 143/74; PULSE 70; TEMP 97.4
--- NOTE | 2016-11-24 16:28 | EKG ---
Test Reason : Blood Pressure : / mmHG Vent. Rate : 069 BPM Atrial Rate : 069 BPM P-R Int : 174 ms QRS Dur : 098 ms QT Int : 378 ms P-R-T Axes : 035 -36 021 degrees QTc Int : 405 ms NORMAL SINUS RHYTHM LEFT AXIS DEVIATION MINIMAL VOLTAGE CRITERIA FOR LVH, MAY BE NORMAL VARIANT NONSPECIFIC T WAVE ABNORMALITY ABNORMAL ECG WHEN COMPARED WITH ECG OF 22-NOV-2016 08:29, NO SIGNIFICANT CHANGE WAS FOUND Confirmed by KOKO JACOBSON MD ([id number]) on 11/24/2016 4:27:55 PM Referred By: PACHECO ARELLANO Confirmed By:KOKO JACOBSON MD
--- NOTE | 2016-11-24 17:23 | PN ---
Progress Note, Physician History of Present Illness: No complaints No chest pain - Current Medication List Current Medications: Active Medications Amlodipine Besylate (Norvasc -) 5 mg PO DAILY [facility] Last Admin: 11/24/16 10:12 Dose: 5 mg Carbidopa/Levodopa (Sinemet 25/100 -) 1 each PO QID [facility] Last Admin: 11/24/16 15:10 Dose: 1 each Ferrous Sulfate (Feosol -) 325 mg PO DAILY [facility] Last Admin: 11/24/16 09:19 Dose: 325 mg Pantoprazole Sodium (Protonix 40mg Ivpb (Pre-Docked)) 100 mls @ 200 mls/hr IVPB DAILY [facility] Last Admin: 11/24/16 09:19 Dose: 200 mls/hr Ceftriaxone Sodium (Rocephin 1gm Ivpb (Pre-Docked)) 50 mls @ 100 mls/hr IVPB DAILY [facility] Last Admin: 11/24/16 09:19 Dose: 100 mls/hr Insulin Aspart (Novolog Vial Sliding Scale -) 1 vial SQ ACHS [facility] PRN Reason: Protocol Last Admin: 11/24/16 11:54 Dose: 2 unit - Objective Vital Signs: Vital Signs Temperature 97.4 F L 11/24/16 14:00 Pulse Rate 70 11/24/16 14:00 Respiratory Rate 20 11/24/16 14:00 Blood Pressure 143/74 11/24/16 14:00 O2 Sat by Pulse Oximetry (%) 93 L 11/24/16 12:28 Constitutional: Yes: Well Nourished, No Distress Eyes: Yes: WNL HENT: Yes: WNL Neck: Yes: WNL Cardiovascular: Yes: Regular Rate and Rhythm Respiratory: Yes: WNL Edema: No Assessment/Plan EKG: nsr, lad, lvh. no acute ischemic changes CXR: elevated rt hemidiaphragm, no acute infiltrate. echo 2012: nl lv/rv size/fn. E A reversal, mod MR. a/p:81 yo F with PMH HTN, HLD,, anemia, CDiff, bowel obstruction s/p colon resection in 2014, GI bleed, chronic UTI, diet-controlled NIDDM, cervical CA s/ p hysterectomy, gallbladder CA s/p cholecystectomy and radiation, GERD, depression, mild dementia/Parkinson's, sacral decubitus ulcer, presents with CP in setting of nausea/abdominal pain. CP - atypical sx's. History unclear/unreliable. Currently no cp. CE's neg x 2 and ekg without ischemic changes. Echo for further evaluation, if benign no further cardiac testing for now, monitor for sx recurrence, can consider ischemic testing as outpt if symptoms. - d-dimer negative. - tx of underlying medical condition/uti per pmd. HTN - not on home anti-hypertensives. If bp remains elevated would start amlodipine 5 mg/day but BP OK today HL - not on statin, not unreasonable give age and comorbidities. defer to outpatient md.
== END 2016-11-24 19:41 | disposition home or self-care (01) | DRG 690 ==
LOC: JER 07:45 → JERBED 10:10 → J4W 21:33 → OBSVTOIN 11-23 16:37
PROVIDERS: ADMIT Internal Medicine; ATTEND Nurse Practitioner Family
DX: N39.0 Urinary tract infection, site not specified (principal); D64.9 Anemia, unspecified; E11.9 Type 2 diabetes mellitus without complications; I10 Essential (primary) hypertension; E78.5 Hyperlipidemia, unspecified; K21.9 Gastro-esophageal reflux disease without esophagitis; F32.9 Major depressive disorder, single episode, unspecified; R07.9 Chest pain, unspecified; G20 Parkinson's disease; F02.80 Dementia in other diseases classified elsewhere, unspecified severity, without behavioral disturbance, psychotic disturbance, mood disturbance, and anxiety; Z85.41 Personal history of malignant neoplasm of cervix uteri
CPT/HCPCS: 36415; 71010-TC; 80053; 81003; 81015; 82550; 83735; 83880; 84100; 84484; 85025; 85027; 85379; 87040; 87086; 87186; 93005; 93010; 93306-TC; 99284-25; G0378

== ENCOUNTER 2017-01-17 17:27 | Inpatient (IN) | payer OTHER ==
[2017-01-17] MEDS ORDERED: SODIUM CHLORIDE 1,000 ML IV STA (18:08)
--- NOTE | 2017-01-17 18:42 | PDOC ---
History of Present Illness - General History Source: Patient Exam Limitations: No Limitations - History of Present Illness Initial Comments: 01/17/17 18:43 The patient is a 81 year old female with a significant past medical history of Parkinsons disease, hypertension, and diabetes, presenting to the Emergency Department with nausea, vomiting, and frequent urination since last night. The patient's daughter reports that the patient is not on medication for her diabetes, though her doctor said her A1C was borderline so she was instructed to take her blood glucose levels, and reports that today her blood glucose was 476. The patient reports that she had one episode of vomiting last night, and reports that her nausea has resolved. She admits that the vomit was not yellow or bloody. She states that she has had a cough producing phlegm for one week. The patient denies fever, or chills. Patient denies chest pain, palpitations, and shortness of breath. Patient denies dizziness, headache, or visual changes. PCP: Genia <Stormy Valdes - Last Filed: 01/17/17 18:43> - General History Source: Patient, Family Exam Limitations: No Limitations <Yovani Nance - Last Filed: 01/17/17 18:58> - General Chief Complaint: Nausea/Vomiting Stated Complaint: NAUSE, VOMITIN, HYPERGLYCEMIA Time Seen by Provider: 01/17/17 17:50 Past History <Stormy Valdes - Last Filed: 01/17/17 18:43> - Past Medical History Anemia: Yes Asthma: No Cancer: Yes (cervical, gallbladder) Cardiac Disorders: Yes (htn) CVA: No COPD: No CHF: No Dementia: No Diabetes: Yes (no meds) GI Disorders: Yes (EGD) Disorders: No HTN: Yes (no meds) Hypercholesterolemia: Yes HIV: No Kidney Stones: Yes Liver Disease: No Psychiatric Problems: Yes (depression) Suicide Attempt (Hx): No Seizures: No Thyroid Disease: No - Surgical History Abdominal Surgery: Yes (colon resec 2013) Appendectomy: No Cardiac Surgery: No Cholecystectomy: Yes Lung Surgery: No Neurologic Surgery: No - Immunization History Td Vaccination: Yes TDAP Vaccination: Yes Immunization Up to Date: Yes - Psycho/Social/Smoking Cessation Hx Anxiety: No Suicidal Ideation: No Smoking Status: No Smoking History: Never smoked Years of Tobacco Use: 0 Have you smoked in the past 12 months: No Number of Cigarettes Smoked Daily: 0 Cigars Per Day: 0 Information on smoking cessation initiated: No Hx Alcohol Use: No Drug/Substance Use Hx: No Substance Use Type: None Hx Substance Use Treatment: No <Yovani Nance - Last Filed: 01/17/17 18:58> - Past Medical History Allergies/Adverse Reactions: Allergies Allergy/AdvReac Type Severity Reaction Status Date / Time No Known Allergies Allergy Verified 11/22/16 07:57 Home Medications: Ambulatory Orders Carbidopa/Levodopa [Carbidopa-Levodopa 25-100 Tab] 1 each PO QID 05/14/16 Cyanocobalamin (Vitamin B-12) [Vitamin B-12] 1,000 mcg PO DAILY 05/14/16 Ferrous Sulfate 325 mg PO DAILY 05/14/16 Mirtazapine 30 mg PO DAILY 05/14/16 Quetiapine Fumarate [Seroquel -] 12.5 mg PO HS 05/14/16 Acetaminophen [Tylenol .Extra-Strength -] 1,000 mg PO Q6H PRN #100 tablet Amlodipine Besylate [Norvasc -] 5 mg PO DAILY #30 tablet 11/24/16 Amoxicillin/Potassium Clav [Amox-Clav 500-125 mg Tablet] 1 each PO BID #10 tablet 11/24/16 Review of Systems - Review of Systems Able to Perform ROS?: Yes Comments:: 01/17/17 18:44 CONSTITUTIONAL: Reported: + high blood sugar No reported: Fever, Chills, Diaphoresis, Generalized Weakness, Malaise, Loss of Appetite HEENT: No reported: Rhinorrhea, Nasal Congestion, Throat Pain, Throat Swelling, Difficulty Swallowing, Mouth Swelling, Ear Pain, Eye Pain, Visual Changes CARDIOVASCULAR: No reported: Chest Pain, Syncope, Palpitations, Irregular Heart Rate, Lightheadedness, Peripheral Edema RESPIRATORY: Reported: + productive cough No reported: Shortness of Breath, SOB with Exertion, Orthopnea, Wheezing, Stridor, Hemoptysis GASTROINTESTINAL: Reported: + nausea, + vomiting No reported: Abdominal pain, Abdominal Distension, Diarrhea, Constipation, Melena, Hematochezia GENITOURINARY: Reported: + frequent urination No reported: Dysuria, Urgency, Hesitancy, Flank Pain, Genital Pain MUSCULOSKELETAL: No reported: Myalgia, Arthralgia, Joint Swelling, Back pain, Neck Pain SKIN: No reported: Rash, Itching, Pallor HEMATOLOGIC/IMMUNOLOGIC: No reported: Easy Bleeding, Easy Bruising, Lymphadenopathy, Frequent infections ENDOCRINE: No reported: Unexplained Weight Gain, Unexplained Weight Loss, Heat Intolerance , Cold Intolerance NEUROLOGIC: No reported: Headache, Focal Weakness, Paresthesias, Vertigo, Lightheadedness, Unsteady Gait, Seizure, Mental Status Changes, Incontinence PSYCHIATRIC: No reported: Anxiety, Depression <Stormy Valdes - Last Filed: 01/17/17 18:43> *Physical Exam - Vital Signs Last Vital Signs Temp Pulse Resp BP Pulse Ox 99.3 F 96 H 20 112/76 97 01/17/17 17:46 01/17/17 17:46 01/17/17 17:46 01/17/17 17:46 01/17/17 17:46 - Physical Exam Comments: 01/17/17 18:44 GENERAL: The patient is awake, alert, and fully oriented, Nontoxic - in no acute distress. HEAD: Normocephalic, atraumatic. EYES: extraocular movements intact, sclera anicteric, conjunctiva clear. ENT: Dry mucous membranes. Normal voice. NECK: Normal range of motion, No JVD LUNGS: Breath sounds equal, clear to auscultation bilaterally. No wheezes, no rhonchi, no rales. HEART: Regular rate and rhythm, normal S1 and S2 without murmur, rub or gallop. ABDOMEN: Soft, nontender, normoactive bowel sounds. No guarding, no rebound. No masses. No CVA tenderness EXTREMITIES: Normal range of motion, no edema. No clubbing or cyanosis. No cords , erythema, or tenderness. NEUROLOGICAL: No facial asymmetry, Normal speech. PSYCH: Normal mood, normal affect. SKIN: Warm, Dry, normal turgor. <Stormy Valdes - Last Filed: 01/17/17 18:43> - Vital Signs Last Vital Signs Temp Pulse Resp BP Pulse Ox 99.3 F 96 H 20 112/76 97 01/17/17 17:46 01/17/17 17:46 01/17/17 17:46 01/17/17 17:46 01/17/17 17:46 <Yovani Nance - Last Filed: 01/17/17 18:58> ED Treatment Course - ADDITIONAL ORDERS Additional order review: Laboratory Results 01/17/17 17:59 POC Glucometer > 400 01/17/17 17:59 POC Glucometer > 400 - Medications Given in the ED: ED Medications Discontinued Medications Generic Name Dose Route Start Last Admin Trade Name Freq PRN Reason Stop Dose Admin Diphenhydramine HCl 25 mg 01/17/17 18:09 01/17/17 18:38 Benadryl Injection - IVPB 01/17/17 18:10 Not Given ONCE ONE <Stormy Valdes - Last Filed: 01/17/17 18:43> - ADDITIONAL ORDERS Additional order review: Laboratory Results 01/17/17 17:59 POC Glucometer > 400 01/17/17 17:59 POC Glucometer > 400 - RADIOLOGY Radiology Studies Ordered: Category Date Time Status CHEST X-RAY PORTABLE* [RAD] Stat Radiology 01/17/17 18:25 Ordered - Medications Given in the ED: ED Medications Discontinued Medications Generic Name Dose Route Start Last Admin Trade Name Freq PRN Reason Stop Dose Admin Diphenhydramine HCl 25 mg 01/17/17 18:09 01/17/17 18:38 Benadryl Injection - IVPB 01/17/17 18:10 Not Given ONCE ONE <Yovani Nance - Last Filed: 01/17/17 18:58> Medical Decision Making - Medical Decision Making 01/17/17 18:39 A portion of this note was documented by scribe services under my direction. I have reviewed the details of the note, within reason, and agree with the documentation with the following case summary and management plan written by me. Patient treated in the ED. Nursing notes are reviewed and incorporated into the medical decision-making. Vital signs reviewed. Peripheral IV access obtained by the nurse, laboratory studies are drawn and sent, reviewed and interpreted by myself. Vital Signs Temp Pulse Resp BP Pulse Ox 99.3 F 96 H 20 112/76 97 01/17/17 17:46 01/17/17 17:46 01/17/17 17:46 01/17/17 17:46 01/17/17 17:46 81-year-old female with history of Parkinson's, hypertension, diabetes reportedly diet-controlled presents with 1 day of polyuria, polydipsia and 1 episode of vomiting. Patient reported that she was feeling dehydrated. Her home health aide had taken a sugar check which was 470. Patient denies any fevers but reports that she's been having some chest congestion for one week. Denies difficulty breathing. Patient has episode hyperglycemia. We'll rule out DKA. We'll obtain chest x-ray to rule out pneumonia. Labs, IV fluids and glucose control. Reassess. 01/17/17 18:58 Case signed out to [facility] ED attending DR. Mckeon for further management and disposition. <Yovani Nance - Last Filed: 01/17/17 18:58> *DC/Admit/Observation/Transfer - Attestations Scribe Attestion: 01/17/17 18:45 Documentation prepared by Stormy Valdes, acting as medical aide for Yovani Nance MD. <Stormy Valdes - Last Filed: 01/17/17 18:43> <Yovani Nance - Last Filed: 01/17/17 18:58> - Referrals Referrals: Aide Patino [Primary Care Provider] -
[2017-01-17 19:17] LABS: BASOPHIL 0.3 % (0-2.0); EOSINOPHIL 0.2 % (0-4.5); MCH 30.1 pg (25.7-33.7); MCHC 32.4 g/dl (32.0-36.0); MEAN PLT VOLUME 11.5 fl (7.5-11.1); PLATELET COUNT 300 K/MM3 (134-434); RDW 13.8 % (11.6-15.6); WHITE BLOOD COUNT 11.3 K/mm3 (4.0-10.0)
[2017-01-17 20:20] LABS: URINE APPEARANCE CLOUDY; URINE BILIRUBIN NEGATIVE (NEGATIVE); URINE COLOR YELLOW; URINE GLUCOSE (UA) 3+ (NEGATIVE); URINE KETONE TRACE (NEGATIVE); URINE NITRITE NEGATIVE (NEGATIVE); URINE UROBILINOGEN NEGATIVE E.U./dl (0.2-1.0)
[2017-01-17 20:24] LABS: URINE BLOOD 1+ (NEGATIVE); URINE LEUK ESTERASE 2+ (NEGATIVE); URINE PROTEIN 2+ (NEGATIVE)
[2017-01-17 20:25] LABS: URINE BACTERIA MANY /hpf (NONE SEEN); URINE MUCUS FEW; URINE RBC 11 /hpf (0-3); URINE WBC 487 /hpf (3-5); YEAST FEW
[2017-01-17] MEDS ORDERED: CEFTRIAXONE 50 ML ONE (20:52)
--- NOTE | 2017-01-17 20:58 | PDOC ---
*Physical Exam - Vital Signs Last Vital Signs Temp Pulse Resp BP Pulse Ox 99.3 F 96 H 20 112/76 97 01/17/17 17:46 01/17/17 17:46 01/17/17 17:46 01/17/17 17:46 01/17/17 17:46 ED Treatment Course - LABORATORY CBC & Chemistry Diagram: 01/17/17 18:10 01/17/17 19:51 - ADDITIONAL ORDERS Additional order review: Laboratory Results 01/17/17 01/17/17 01/17/17 18:10 18:08 17:59 Sodium Cancelled Potassium Cancelled Chloride Cancelled Carbon Dioxide Cancelled Anion Gap Cancelled BUN Cancelled Creatinine Cancelled Creat Clearance w eGFR Cancelled POC Glucometer > 400 Random Glucose Cancelled Calcium Cancelled Total Bilirubin Cancelled AST Cancelled ALT Cancelled Alkaline Phosphatase Cancelled Creatine Kinase Cancelled Troponin I Cancelled Total Protein Cancelled Albumin Cancelled Lipase Cancelled Urine Color Yellow Urine Appearance Cloudy Urine pH 5.0 Urine Protein 2+ H Urine Glucose (UA) 3+ H Urine Ketones Trace H Urine Blood 1+ H Urine Nitrite Negative Urine Bilirubin Negative Urine Urobilinogen Negative Ur Leukocyte Esterase 2+ H Urine RBC 11 Urine WBC 487 Urine Bacteria Many Urine Mucus Few Urine Yeast Few Acetone, Qual Cancelled 01/17/17 01/17/17 18:10 17:59 RBC 4.43 MCV 93.0 MCHC 32.4 RDW 13.8 MPV 11.5 H Neutrophils % 82.0 Lymphocytes % 11.2 D Monocytes % 6.3 Eosinophils % 0.2 D Basophils % 0.3 POC Glucometer > 400 - Medications Given in the ED: ED Medications Discontinued Medications Generic Name Dose Route Start Last Admin Trade Name Adielq PRN Reason Stop Dose Admin Ceftriaxone Sodium 1,000 mg 01/17/17 20:36 01/17/17 20:51 Rocephin - IVPB 01/17/17 20:37 1,000 mg ONCE ONE Administration Diphenhydramine HCl 25 mg 01/17/17 18:09 01/17/17 18:38 Benadryl Injection - IVPB 01/17/17 18:10 Not Given ONCE ONE Sodium Chloride 1,000 mls @ 1,000 mls/hr 01/17/17 18:08 01/17/17 18:37 Normal Saline - IV 01/17/17 19:07 1,000 mls/hr ASDIR STA Administration Medical Decision Making - Medical Decision Making 01/17/17 20:57 Pt will administer evening medication to pt at this time. *DC/Admit/Observation/Transfer Diagnosis at time of Disposition: UTI (lower urinary tract infection), Hyperglycemia - Discharge Dispostion Condition at time of disposition: Stable Admit: Yes - Referrals Referrals: Aide Patino [Primary Care Provider] - - Patient Instructions - Post Discharge Activity
[2017-01-17 21:12] LABS: ANION GAP 11 (8-16); BILIRUBIN,TOTAL 0.6 mg/dL (0.2-1.0); CALCIUM 8.9 mg/dL (8.5-10.1); CO2 30 mmol/L (21-32); COCKROFT - GAULT 59.3895; CREATININE 1.1 mg/dL (0.55-1.02); SGOT/AST 13 U/L (15-37); SGPT/ALT 16 U/L (12-78); TOT PROT 7.3 g/dl (6.4-8.2)
[2017-01-17 21:15] LABS: ALK PHOS 121 U/L (45-117); TROPONIN I < 0.02 ng/ml (0.00-0.05)
[2017-01-17 21:18] LABS: GLUCOSE,RANDOM 361 mg/dL (74-106)
[2017-01-17] MEDS ORDERED: INSULIN REGULAR HUMAN 100 UNITS/ML *VIAL IVPUSH ONE (21:18)
--- NOTE | 2017-01-17 22:21 | HP ---
Admitting History and Physical - Primary Care Physician PCP: Alexandria Lopez - Admission History of Present Illness: -81 year old female with a significant past medical history of Parkinsons disease, hypertension, and diabetes, presenting to the Emergency Department with nausea, vomiting, and frequent urination since last night. The patient's daughter reports that the patient is not on medication for her diabetes, though her doctor said her A1C was borderline so she was instructed to take her blood glucose levels, and reports that today her blood glucose was 476. The patient reports that she had one episode of vomiting last night, and reports that her nausea has resolved. She admits that the vomit was not yellow or bloody. She states that she has had a cough producing phlegm for one week. The patient denies fever, or chills. Patient denies chest pain, palpitations, and shortness of breath. Patient denies dizziness, headache, or visual changes. 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 Home Medications - Allergies Allergies/Adverse Reactions: Allergies Allergy/AdvReac Type Severity Reaction Status Date / Time No Known Allergies Allergy Verified 11/22/16 07:57 - Home Medications Home Medications: Ambulatory Orders Amlodipine Besylate [Norvasc -] 5 mg PO DAILY 01/17/17 Carbidopa/Levodopa [Carbidopa-Levodopa 25-100 Tab] 1 each PO QID 01/17/17 Cholecalciferol (Vitamin D3) [Vitamin D3] 1,000 unit PO DAILY 01/17/17 Ferrous Sulfate [Feosol] 325 mg PO DAILY 01/17/17 Lisinopril [Prinivil] 5 mg PO DAILY 01/17/17 Mirtazapine [Remeron -] 30 mg PO DAILY 01/17/17 Quetiapine Fumarate [Seroquel -] 25 mg PO HS 01/17/17 Family Disease History - Family Disease History Family Disease History: Heart Disease: Sister ([place]), Other: Brother (Bone Ca ) Review of Systems - Review of Systems Constitutional: denies: No Symptoms, Chills, Diaphoresis, Fever, Lethargy, Loss of Appetite, Malaise, Night Sweats, Unintentional Wgt. Loss, Weakness, Other Eyes: denies: No Symptoms, Blind Spots, Blurred Vision, Double Vision, Eye Pain , Floaters, Photophobia, Recent Change in Vision, Other HENT: denies: No Symptoms, Difficult Swallowing, Ear Discharge, Ear Pain, Epistaxis, Gingival Bleeding, Hearing Loss, Mouth Swelling, Nasal Congestion, Ocular Prosthesis, Throat Pain, Toothache, Ringing in Ears, Other Neck: denies: No Symptoms, Decreased ROM, Lumps, Pain on Movement, Stiffness, Swollen Glands, Tenderness, Other Cardiovascular: denies: No Symptoms, Chest Pain, Edema, Palpitations, Shortness of Breath, Other Respiratory: denies: No Symptoms, Cough, Exercise Intolerance, Hemoptysis, Orthopnea, PND, Snoring, SOB, SOB on Exertion, Wheezing, Other Gastrointestinal: reports: Nausea, Vomiting Genitourinary: reports: Frequency Breasts: denies: No Symptoms Reported, See HPI, Breast Implants, Discharge from Nipple, Lumps, Pain, Skin Changes, Other Musculoskeletal: denies: No Symptoms, Back Pain, Crepitus, Decreased ROM, Extremity Pain, Joint Pain, Joint Swelling, Muscle Pain, Muscle Cramps, Muscle Weakness, Other Integumentary: denies: No Symptoms, Blister, Bruising, Change in Color, Eczema, Erythema, Incision, Lesions, Lump, Pallor, Pruritis, Rash, Wound, Other Neurological: denies: No Symptoms, Change in LOC, Change in Speech, Confusion, Dizziness, Headache, Incoordination, Numbness, Parasthesia, Pre-Existing Deficit , Seizure, Syncope, Tremors, Unsteady Gait, Weakness, Other Endocrine: reports: Increased Hunger, Increased Thirst Physical Examination Vital Signs: Vital Signs Temperature 98.1 F 01/17/17 20:57 Pulse Rate 81 01/17/17 20:57 Respiratory Rate 16 01/17/17 20:57 Blood Pressure 119/68 01/17/17 20:57 O2 Sat by Pulse Oximetry (%) 97 01/17/17 17:46 Constitutional: Yes: No Distress HENT: Yes: Atraumatic Neck: Yes: Supple Cardiovascular: Yes: Regular Rate and Rhythm Respiratory: Yes: CTA Bilaterally Gastrointestinal: Yes: Normal Bowel Sounds Extremities: Yes: WNL Edema: No Peripheral Pulses WNL: Yes Neurological: Yes: Alert, Oriented Problem List - Problems (1) Hyperglycemia Assessment/Plan: bgms insulin coverage diabetic diet check hgb a1c Code(s): R73.9 - HYPERGLYCEMIA, UNSPECIFIED (2) UTI (lower urinary tract infection) Assessment/Plan: on iv abx ucx Code(s): N39.0 - URINARY TRACT INFECTION, SITE NOT SPECIFIED (3) Parkinson disease Assessment/Plan: continue home meds Code(s): G20 - PARKINSON'S DISEASE Assessment/Plan Laboratory Tests 01/17/17 01/17/17 01/17/17 17:59 18:08 18:10 WBC 11.3 H D RBC 4.43 Hgb 13.3 Hct 41.2 MCV 93.0 MCHC 32.4 RDW 13.8 Plt Count 300 D MPV 11.5 H Neutrophils % 82.0 Lymphocytes % 11.2 D Monocytes % 6.3 Eosinophils % 0.2 D Basophils % 0.3 Sodium Potassium Chloride Carbon Dioxide Anion Gap BUN Creatinine Creat Clearance w eGFR POC Glucometer > 400 Random Glucose Calcium Total Bilirubin AST ALT Alkaline Phosphatase Creatine Kinase Troponin I Total Protein Albumin Lipase Urine Color Yellow Urine Appearance Cloudy Urine pH 5.0 Urine Protein 2+ H Urine Glucose (UA) 3+ H Urine Ketones Trace H Urine Blood 1+ H Urine Nitrite Negative Urine Bilirubin Negative Urine Urobilinogen Negative Ur Leukocyte Esterase 2+ H Urine RBC 11 Urine WBC 487 Urine Bacteria Many Urine Mucus Few Urine Yeast Few Acetone, Qual 01/17/17 01/17/17 01/17/17 18:10 18:38 18:38 WBC RBC Hgb Hct MCV MCHC RDW Plt Count MPV Neutrophils % Lymphocytes % Monocytes % Eosinophils % Basophils % Sodium Cancelled Potassium Cancelled Chloride Cancelled Carbon Dioxide Cancelled Anion Gap Cancelled BUN Cancelled Creatinine Cancelled Creat Clearance w eGFR Cancelled POC Glucometer Random Glucose Cancelled Calcium Cancelled Total Bilirubin Cancelled AST Cancelled ALT Cancelled Alkaline Phosphatase Cancelled Creatine Kinase Cancelled Troponin I Cancelled Total Protein Cancelled Albumin Cancelled Lipase Cancelled 74 Urine Color Urine Appearance Urine pH Urine Protein Urine Glucose (UA) Urine Ketones Urine Blood Urine Nitrite Urine Bilirubin Urine Urobilinogen Ur Leukocyte Esterase Urine RBC Urine WBC Urine Bacteria Urine Mucus Urine Yeast Acetone, Qual Cancelled Negative L 01/17/17 19:51 WBC RBC Hgb Hct MCV MCHC RDW Plt Count MPV Neutrophils % Lymphocytes % Monocytes % Eosinophils % Basophils % Sodium 141 Potassium 4.1 Chloride 100 Carbon Dioxide 30 Anion Gap 11 BUN 27 H D Creatinine 1.1 H D Creat Clearance w eGFR 47.91 POC Glucometer Random Glucose 361 H* D Calcium 8.9 Total Bilirubin 0.6 AST 13 L ALT 16 D Alkaline Phosphatase 121 H Creatine Kinase 47 Troponin I < 0.02 Total Protein 7.3 Albumin 3.0 L Lipase Urine Color Urine Appearance Urine pH Urine Protein Urine Glucose (UA) Urine Ketones Urine Blood Urine Nitrite Urine Bilirubin Urine Urobilinogen Ur Leukocyte Esterase Urine RBC Urine WBC Urine Bacteria Urine Mucus Urine Yeast Acetone, Qual Active Medications Generic Name Dose Route Start Last Admin Trade Name Freq PRN Reason Stop Dose Admin Acetaminophen 650 mg 01/17/17 22:24 Tylenol - PO Q6H PRN FEVER OR PAIN Amlodipine Besylate 5 mg 01/18/17 10:00 01/18/17 09:54 Norvasc - PO 5 mg DAILY [facility] Administration Carbidopa/Levodopa 1 each 01/18/17 10:00 01/18/17 17:17 Sinemet 25/100 - PO 1 each QID [facility] Administration Ceftriaxone Sodium 1 gm 01/18/17 10:00 01/18/17 09:55 Rocephin 1gm Ivpb (Pre-Docked) IVPB 1 gm DAILY [facility] Administration Cholecalciferol 1,000 unit 01/18/17 10:00 01/18/17 09:55 Vitamin D3 - PO 1,000 unit DAILY [facility] Administration Ferrous Sulfate 325 mg 01/18/17 10:00 01/18/17 09:54 Feosol - PO 325 mg DAILY [facility] Administration Heparin Sodium (Porcine) 5,000 unit 01/18/17 10:00 01/18/17 09:54 Heparin - SQ 5,000 unit BID [facility] Administration Sodium Chloride 1,000 mls @ 50 mls/hr 01/17/17 22:30 01/18/17 00:11 Normal Saline - IV 50 mls/hr ASDIR [facility] Administration Insulin Aspart 1 vial 01/18/17 11:00 01/18/17 17:13 Novolog Vial Sliding Scale - SQ Not Given TIDAC [facility] Protocol Insulin Aspart 1 vial 01/18/17 22:00 Novolog Vial Sliding Scale - SQ HS [facility] Protocol Lisinopril 5 mg 01/18/17 10:00 01/18/17 09:54 Prinivil PO 5 mg DAILY [facility] Administration Mirtazapine 30 mg 01/18/17 22:00 Remeron - PO HS [facility] Quetiapine Fumarate 25 mg 01/18/17 22:00 Seroquel - PO HS [facility] Sitagliptin Phosphate 50 mg 01/19/17 07:00 Januvia - PO DAILY@0700 [facility]
[2017-01-17] MEDS ORDERED: ACETAMINOPHEN 325 MG TABLET (FP) PO PRN (22:24)
[2017-01-18] MEDS: SODIUM CHLORIDE 1,000 ML IV SCH ×2 (00:11→23:02)
[2017-01-18 05:51] VITALS: BMI 34.0
[2017-01-18] MEDS ORDERED: INSULIN SLIDING SCALE (NOVOLOG) 1 VIAL SQ SCH (07:00)
[2017-01-18 08:01] LABS: BASOPHIL 0.3 % (0-2.0); EOSINOPHIL 2.3 % (0-4.5); MCH 31.6 pg (25.7-33.7); MCHC 33.8 g/dl (32.0-36.0); MEAN CELL VOLUME 93.3 fl (80-96); MEAN PLT VOLUME 10.7 fl (7.5-11.1); NEUTROPHILS 73.2 % (42.8-82.8); PLATELET COUNT 238 K/MM3 (134-434); RDW 13.6 % (11.6-15.6); WHITE BLOOD COUNT 8.5 K/mm3 (4.0-10.0)
[2017-01-18 08:23] LABS: ALBUMIN 2.7 g/dl (3.4-5.0); CALCIUM 8.1 mg/dL (8.5-10.1)
[2017-01-18 08:27] LABS: BILIRUBIN,TOTAL 0.5 mg/dL (0.2-1.0); COCKROFT - GAULT 71.009; TOT PROT 6.3 g/dl (6.4-8.2)
--- NOTE | 2017-01-18 09:01 | CONSULT ---
Consult Consult Specialty:: Endocrinology Referred by:: Dr Lopez Reason for Consultation:: New onset DM/Hyperglycemia - History of Present Illness Chief Complaint: Hyperglycemia History of Present Illness: This is a 81 year old female with history of Parkinsons disease, hypertension , and diet controlled diabetes, who presented to the Emergency Department with nausea, vomiting, and frequent urination for one day. The patient's daughter reported that the patient is not on medication for her diabetes, though her doctor said her A1C was borderline so she was instructed to take her blood glucose levels, and reported that it was 476 on day of admission. The patient reported that she had one episode of vomiting the night before admission. Also c /o a cough producing phlegm especially at night for one week. The patient denied any fever, or chills. No chest pain, palpitations, shortness of breath, dizziness, headache, or visual changes. Pt denies any history of Pancreatitis which was confirmed by the daughter over the phone. 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 HEAD: Yes: Dementia, Parkinson's Cardio/Vascular: Yes: HTN ...: No Endocrine: Yes: Diabetes Mellitus - Past Surgical History Past Surgical History: Yes: Hysterectomy - Alcohol/Substance Use Hx Alcohol Use: No - Smoking History Smoking history: Never smoked Have you smoked in the past 12 months: No Aproximately how many cigarettes per day: 0 - Social History ADL: Support Services Home Medications - Allergies Allergies/Adverse Reactions: Allergies Allergy/AdvReac Type Severity Reaction Status Date / Time No Known Allergies Allergy Verified 11/22/16 07:57 - Home Medications Home Medications: Ambulatory Orders Amlodipine Besylate [Norvasc -] 5 mg PO DAILY 01/17/17 Carbidopa/Levodopa [Carbidopa-Levodopa 25-100 Tab] 1 each PO QID 01/17/17 Cholecalciferol (Vitamin D3) [Vitamin D3] 1,000 unit PO DAILY 01/17/17 Ferrous Sulfate [Feosol] 325 mg PO DAILY 01/17/17 Lisinopril [Prinivil] 5 mg PO DAILY 01/17/17 Mirtazapine [Remeron -] 30 mg PO DAILY 01/17/17 Quetiapine Fumarate [Seroquel -] 25 mg PO HS 01/17/17 Family Disease History - Family Disease History Family Disease History: Heart Disease: Sister ([place]), Other: Brother (Bone Ca ) Other Family History: No family h/o DM Review of Systems - Review of Systems Constitutional: reports: No Symptoms Eyes: reports: No Symptoms HENT: reports: No Symptoms Neck: reports: No Symptoms Cardiovascular: reports: No Symptoms Respiratory: reports: Cough Gastrointestinal: reports: No Symptoms Genitourinary: reports: Other (polyuria, polydipsia) Breasts: reports: No Symptoms Reported Musculoskeletal: reports: No Symptoms Integumentary: reports: No Symptoms Neurological: reports: No Symptoms Psychiatric: reports: No Symptoms Physical Exam Vital Signs: Vital Signs Temperature 97.7 F 01/18/17 06:00 Pulse Rate 72 01/18/17 06:00 Respiratory Rate 18 01/18/17 06:00 Blood Pressure 93/53 01/18/17 06:00 O2 Sat by Pulse Oximetry (%) 97 01/17/17 17:46 Constitutional: Yes: No Distress, Calm Eyes: Yes: Conjunctiva Clear, EOM Intact HENT: Yes: Atraumatic, Normocephalic Neck: Yes: Supple, Trachea Midline Cardiovascular: Yes: Regular Rate and Rhythm Respiratory: Yes: Regular, CTA Bilaterally Gastrointestinal: Yes: Normal Bowel Sounds, Soft Extremities: Yes: WNL Edema: No Neurological: Yes: Alert Labs: CBC, BMP 01/18/17 06:30 01/18/17 06:30 Imaging - Results Chest X-ray: Report Reviewed Problem List - Problems (1) Hyperglycemia Code(s): R73.9 - HYPERGLYCEMIA, UNSPECIFIED (2) Parkinson disease Code(s): G20 - PARKINSON'S DISEASE Assessment/Plan AP; DM/Hyperglycemia BGM QACHS Nutrition consult Novolog SS coverage Start Januvia 50 mg QD UTI: On ceftriaxone Management as per ID, Consult noted. Parkinson's Disease
--- NOTE | 2017-01-18 09:44 | EKG ---
Test Reason : Blood Pressure : / mmHG Vent. Rate : 085 BPM Atrial Rate : 085 BPM P-R Int : 142 ms QRS Dur : 102 ms QT Int : 370 ms P-R-T Axes : 023 -35 085 degrees QTc Int : 440 ms NORMAL SINUS RHYTHM LEFT AXIS DEVIATION MODERATE VOLTAGE CRITERIA FOR LVH, MAY BE NORMAL VARIANT NONSPECIFIC T WAVE ABNORMALITY ABNORMAL ECG Confirmed by JESSENIA EAST MD ([id number]) on 01/18/2017 9:43:52 AM Referred By: Confirmed By:JESSENIA EAST MD
[2017-01-18] MEDS: HEPARIN NA (PORCINE) 5,000 UNITS/ML 1ML VIAL SQ SCH ×2 (09:54→22:39)
[2017-01-18] MEDS: FERROUS SO4 325 MG TABLET (FP) PO SCH (09:54)
[2017-01-18] MEDS: amLODIPine BESYLATE 5 MG TABLET (FP) PO SCH (09:54)
[2017-01-18] MEDS: LISINOPRIL 5 MG TABLET (FP) PO SCH (09:54)
[2017-01-18] MEDS: CARBIDOPA/LEVODOPA 25/100 TABLET (FP) PO SCH ×4 (09:55→22:40)
[2017-01-18] MEDS: cefTRIAXone 1 GM/50 ML BAG (PRE-DOCKED) IVPB SCH (09:55)
[2017-01-18] MEDS: CHOLECALCIFEROL (VITAMIN D3) 1,000 UNIT TABLET (FP) PO SCH (09:55)
[2017-01-18] MEDS ORDERED: CEFTRIAXONE 1 GM in DEXTROSE 5%-WATER - 100 ML IVPB SCH (10:00)
[2017-01-18] MEDS: INSULIN SLIDING SCALE (NOVOLOG) 1 VIAL SQ SCH ×3 (11:50→22:36)
--- NOTE | 2017-01-18 12:32 | CONSULT ---
Consult Consult Specialty:: infectious diseases Reason for Consultation:: uti vomiting,nausea - History of Present Illness Chief Complaint: cough,vomiting increaed frequency History of Present Illness: 81 year old female with a significant past medical history of Parkinsons disease, hypertension, and diabetes, admitted with nausea, vomiting, and frequent urination since last night. 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: Yes: Dementia, Parkinson's Cardio/Vascular: Yes: HTN ...: No Endocrine: Yes: Diabetes Mellitus - Past Surgical History Past Surgical History: Yes: Hysterectomy - Alcohol/Substance Use Hx Alcohol Use: No - Smoking History Smoking history: Never smoked Have you smoked in the past 12 months: No Aproximately how many cigarettes per day: 0 - Social History ADL: Support Services Home Medications - Allergies Allergies/Adverse Reactions: Allergies Allergy/AdvReac Type Severity Reaction Status Date / Time No Known Allergies Allergy Verified 11/22/16 07:57 - Home Medications Home Medications: Ambulatory Orders Amlodipine Besylate [Norvasc -] 5 mg PO DAILY 01/17/17 Carbidopa/Levodopa [Carbidopa-Levodopa 25-100 Tab] 1 each PO QID 01/17/17 Cholecalciferol (Vitamin D3) [Vitamin D3] 1,000 unit PO DAILY 01/17/17 Ferrous Sulfate [Feosol] 325 mg PO DAILY 01/17/17 Lisinopril [Prinivil] 5 mg PO DAILY 01/17/17 Mirtazapine [Remeron -] 30 mg PO DAILY 01/17/17 Quetiapine Fumarate [Seroquel -] 25 mg PO HS 01/17/17 Family Disease History - Family Disease History Family Disease History: Heart Disease: Sister ([place]), Other: Brother (Bone Ca ) Other Family History: No family h/o DM Review of Systems - Review of Systems Constitutional: reports: No Symptoms Eyes: reports: No Symptoms HENT: reports: No Symptoms Cardiovascular: reports: No Symptoms Respiratory: reports: No Symptoms Gastrointestinal: reports: Nausea, Vomiting Genitourinary: reports: Frequency Musculoskeletal: reports: No Symptoms Integumentary: reports: No Symptoms Neurological: reports: No Symptoms Endocrine: reports: No Symptoms Hematology/Lymphatic: reports: No Symptoms Psychiatric: reports: No Symptoms Physical Exam Vital Signs: Vital Signs Temperature 98 F 01/18/17 09:01 Pulse Rate 81 01/18/17 11:16 Respiratory Rate 20 01/18/17 09:01 Blood Pressure 105/62 01/18/17 09:01 O2 Sat by Pulse Oximetry (%) 98 01/18/17 11:16 Constitutional: Yes: Well Nourished, No Distress, Calm, Obese Eyes: Yes: Conjunctiva Clear Cardiovascular: Yes: Regular Rate and Rhythm Respiratory: Yes: Regular, CTA Bilaterally Gastrointestinal: Yes: Normal Bowel Sounds, Soft Musculoskeletal: Yes: WNL Extremities: Yes: WNL Neurological: Yes: Alert, Oriented Psychiatric: Yes: Alert, Oriented Labs: CBC, BMP 01/18/17 06:30 01/18/17 06:30 Imaging - Results Chest X-ray: Report Reviewed, Image Reviewed Assessment/Plan - Problems (1) Hyperglycemia Code(s): R73.9 - HYPERGLYCEMIA, UNSPECIFIED (2) UTI (lower urinary tract infection) Code(s): N39.0 - URINARY TRACT INFECTION, SITE NOT SPECIFIED (3) Parkinson disease Code(s): G20 - PARKINSON'S DISEASE plan await for cx to be back agree wiht current mgmt rest as per endo and primary
[2017-01-18] MEDS ORDERED: sitaGLIPtin PHOSPHATE 50 MG TABLET PO ONE (12:49)
--- NOTE | 2017-01-18 18:30 | PN ---
Progress Note, Physician - Current Medication List Current Medications: Active Medications Acetaminophen (Tylenol -) 650 mg PO Q6H PRN PRN Reason: FEVER OR PAIN Amlodipine Besylate (Norvasc -) 5 mg PO DAILY [facility] Last Admin: 01/18/17 09:54 Dose: 5 mg Carbidopa/Levodopa (Sinemet 25/100 -) 1 each PO QID [facility] Last Admin: 01/18/17 17:17 Dose: 1 each Ceftriaxone Sodium (Rocephin 1gm Ivpb (Pre-Docked)) 1 gm IVPB DAILY [facility] Last Admin: 01/18/17 09:55 Dose: 1 gm Cholecalciferol (Vitamin D3 -) 1,000 unit PO DAILY [facility] Last Admin: 01/18/17 09:55 Dose: 1,000 unit Ferrous Sulfate (Feosol -) 325 mg PO DAILY [facility] Last Admin: 01/18/17 09:54 Dose: 325 mg Heparin Sodium (Porcine) (Heparin -) 5,000 unit SQ BID [facility] Last Admin: 01/18/17 09:54 Dose: 5,000 unit Sodium Chloride (Normal Saline -) 1,000 mls @ 50 mls/hr IV ASDIR [facility] Last Admin: 01/18/17 00:11 Dose: 50 mls/hr Insulin Aspart (Novolog Vial Sliding Scale -) 1 vial SQ TIDAC [facility] PRN Reason: Protocol Last Admin: 01/18/17 17:13 Dose: Not Given Insulin Aspart (Novolog Vial Sliding Scale -) 1 vial SQ HS [facility] PRN Reason: Protocol Lisinopril (Prinivil) 5 mg PO DAILY [facility] Last Admin: 01/18/17 09:54 Dose: 5 mg Mirtazapine (Remeron -) 30 mg PO HS [facility] Quetiapine Fumarate (Seroquel -) 25 mg PO HS [facility] Sitagliptin Phosphate (Januvia -) 50 mg PO DAILY@0700 [facility] - Objective Vital Signs: Vital Signs Temperature 98.2 F 01/18/17 13:53 Pulse Rate 73 01/18/17 13:53 Respiratory Rate 18 01/18/17 13:53 Blood Pressure 127/73 01/18/17 13:53 O2 Sat by Pulse Oximetry (%) 98 01/18/17 11:16 Constitutional: Yes: No Distress HENT: Yes: Atraumatic Neck: Yes: Supple Cardiovascular: Yes: Regular Rate and Rhythm Respiratory: Yes: CTA Bilaterally Gastrointestinal: Yes: Normal Bowel Sounds Extremities: Yes: WNL Neurological: Yes: Alert, Oriented Labs: CBC, BMP 01/18/17 06:30 01/18/17 06:30 Problem List - Problems (1) Hyperglycemia Assessment/Plan: bgms insulin coverage diabetic diet check hgb a1c Code(s): R73.9 - HYPERGLYCEMIA, UNSPECIFIED (2) UTI (lower urinary tract infection) Assessment/Plan: on iv abx ucx Code(s): N39.0 - URINARY TRACT INFECTION, SITE NOT SPECIFIED (3) Parkinson disease Assessment/Plan: continue home meds Code(s): G20 - PARKINSON'S DISEASE Assessment/Plan
[2017-01-18] MEDS ORDERED: INSULIN (NOVOLOG) ASPART 100 UNITS/ML 10ML VIAL ONE (21:33)
[2017-01-18] MEDS: MIRTAZAPINE 15 MG TABLET (FP) PO SCH (22:39)
[2017-01-18] MEDS: QUEtiapine FUMARATE 25 MG TABLET (FP) PO SCH (22:39)
[2017-01-19] MEDS ORDERED: INSULIN (NOVOLOG) ASPART 100 UNITS/ML 10ML VIAL ONE ×2 (05:44→21:35)
[2017-01-19] MEDS: INSULIN SLIDING SCALE (NOVOLOG) 1 VIAL SQ SCH ×4 (06:20→22:14)
[2017-01-19] MEDS: sitaGLIPtin PHOSPHATE 50 MG TABLET PO SCH (06:22)
--- NOTE | 2017-01-19 09:42 | PN ---
Progress Note, Physician History of Present Illness: stable no new issues - Current Medication List Current Medications: Active Medications Acetaminophen (Tylenol -) 650 mg PO Q6H PRN PRN Reason: FEVER OR PAIN Amlodipine Besylate (Norvasc -) 5 mg PO DAILY [facility] Last Admin: 01/18/17 09:54 Dose: 5 mg Carbidopa/Levodopa (Sinemet 25/100 -) 1 each PO QID [facility] Last Admin: 01/18/17 22:40 Dose: 1 each Ceftriaxone Sodium (Rocephin 1gm Ivpb (Pre-Docked)) 1 gm IVPB DAILY [facility] Last Admin: 01/18/17 09:55 Dose: 1 gm Cholecalciferol (Vitamin D3 -) 1,000 unit PO DAILY [facility] Last Admin: 01/18/17 09:55 Dose: 1,000 unit Ferrous Sulfate (Feosol -) 325 mg PO DAILY [facility] Last Admin: 01/18/17 09:54 Dose: 325 mg Heparin Sodium (Porcine) (Heparin -) 5,000 unit SQ BID [facility] Last Admin: 01/18/17 22:39 Dose: 5,000 unit Sodium Chloride (Normal Saline -) 1,000 mls @ 50 mls/hr IV ASDIR [facility] Last Admin: 01/18/17 23:02 Dose: 50 mls/hr Insulin Aspart (Novolog Vial Sliding Scale -) 1 vial SQ TIDAC [facility] PRN Reason: Protocol Last Admin: 01/19/17 06:20 Dose: Not Given Insulin Aspart (Novolog Vial Sliding Scale -) 1 vial SQ HS [facility] PRN Reason: Protocol Last Admin: 01/18/17 22:36 Dose: Not Given Lisinopril (Prinivil) 5 mg PO DAILY [facility] Last Admin: 01/18/17 09:54 Dose: 5 mg Mirtazapine (Remeron -) 30 mg PO HS [facility] Last Admin: 01/18/17 22:39 Dose: 30 mg Quetiapine Fumarate (Seroquel -) 25 mg PO HS [facility] Last Admin: 01/18/17 22:39 Dose: 25 mg Sitagliptin Phosphate (Januvia -) 50 mg PO DAILY@0700 [facility] Last Admin: 01/19/17 06:22 Dose: 50 mg - Objective Vital Signs: Vital Signs Temperature 97.9 F 01/19/17 06:00 Pulse Rate 65 06/03/17 06:00 Respiratory Rate 20 01/19/17 06:00 Blood Pressure 137/70 01/19/17 06:00 O2 Sat by Pulse Oximetry (%) 98 01/18/17 11:16 Constitutional: Yes: No Distress, Calm Cardiovascular: Yes: Regular Rate and Rhythm Respiratory: Yes: Regular, CTA Bilaterally Gastrointestinal: Yes: Normal Bowel Sounds, Soft Musculoskeletal: Yes: WNL Extremities: Yes: WNL Neurological: Yes: Alert, Oriented Psychiatric: Yes: Alert Labs: CBC, BMP 01/18/17 06:30 01/18/17 06:30 Assessment/Plan - Problems (1) Hyperglycemia Code(s): R73.9 - HYPERGLYCEMIA, UNSPECIFIED (2) UTI (lower urinary tract infection) Code(s): N39.0 - URINARY TRACT INFECTION, SITE NOT SPECIFIED (3) Parkinson disease Code(s): G20 - PARKINSON'S DISEASE plan cx showing positve for organism await for identification rest continue current mgmt
[2017-01-19] MEDS: CARBIDOPA/LEVODOPA 25/100 TABLET (FP) PO SCH ×4 (10:17→22:15)
[2017-01-19] MEDS: FERROUS SO4 325 MG TABLET (FP) PO SCH (10:17)
[2017-01-19] MEDS: amLODIPine BESYLATE 5 MG TABLET (FP) PO SCH (10:17)
[2017-01-19] MEDS: LISINOPRIL 5 MG TABLET (FP) PO SCH (10:17)
[2017-01-19] MEDS: CHOLECALCIFEROL (VITAMIN D3) 1,000 UNIT TABLET (FP) PO SCH (10:17)
[2017-01-19] MEDS: HEPARIN NA (PORCINE) 5,000 UNITS/ML 1ML VIAL SQ SCH ×2 (10:19→22:15)
[2017-01-19] MEDS: cefTRIAXone 1 GM/50 ML BAG (PRE-DOCKED) IVPB SCH (11:11)
--- NOTE | 2017-01-19 17:22 | PN ---
Progress Note, Physician - Current Medication List Current Medications: Active Medications Acetaminophen (Tylenol -) 650 mg PO Q6H PRN PRN Reason: FEVER OR PAIN Amlodipine Besylate (Norvasc -) 5 mg PO DAILY [facility] Last Admin: 01/19/17 10:17 Dose: 5 mg Carbidopa/Levodopa (Sinemet 25/100 -) 1 each PO QID [facility] Last Admin: 01/19/17 14:35 Dose: 1 each Ceftriaxone Sodium (Rocephin 1gm Ivpb (Pre-Docked)) 1 gm IVPB DAILY [facility] Last Admin: 01/19/17 11:11 Dose: 1 gm Cholecalciferol (Vitamin D3 -) 1,000 unit PO DAILY [facility] Last Admin: 01/19/17 10:17 Dose: 1,000 unit Ferrous Sulfate (Feosol -) 325 mg PO DAILY [facility] Last Admin: 01/19/17 10:17 Dose: 325 mg Heparin Sodium (Porcine) (Heparin -) 5,000 unit SQ BID [facility] Last Admin: 01/19/17 10:19 Dose: 5,000 unit Sodium Chloride (Normal Saline -) 1,000 mls @ 50 mls/hr IV ASDIR [facility] Last Admin: 01/18/17 23:02 Dose: 50 mls/hr Insulin Aspart (Novolog Vial Sliding Scale -) 1 vial SQ TIDAC [facility] PRN Reason: Protocol Last Admin: 01/19/17 11:12 Dose: Not Given Insulin Aspart (Novolog Vial Sliding Scale -) 1 vial SQ HS [facility] PRN Reason: Protocol Last Admin: 01/18/17 22:36 Dose: Not Given Lisinopril (Prinivil) 5 mg PO DAILY [facility] Last Admin: 01/19/17 10:17 Dose: 5 mg Mirtazapine (Remeron -) 30 mg PO HS [facility] Last Admin: 01/18/17 22:39 Dose: 30 mg Quetiapine Fumarate (Seroquel -) 25 mg PO HS [facility] Last Admin: 01/18/17 22:39 Dose: 25 mg Sitagliptin Phosphate (Januvia -) 50 mg PO DAILY@0700 [facility] Last Admin: 01/19/17 06:22 Dose: 50 mg - Objective Vital Signs: Vital Signs Temperature 98.2 F 01/19/17 17:07 Pulse Rate 75 01/19/17 17:07 Respiratory Rate 18 01/19/17 17:07 Blood Pressure 123/84 01/19/17 17:07 O2 Sat by Pulse Oximetry (%) 98 01/19/17 09:00 Constitutional: Yes: No Distress HENT: Yes: Atraumatic Neck: Yes: Supple Cardiovascular: Yes: Regular Rate and Rhythm Respiratory: Yes: CTA Bilaterally Gastrointestinal: Yes: Normal Bowel Sounds Extremities: Yes: WNL Neurological: Yes: Alert, Oriented Labs: CBC, BMP 01/18/17 06:30 01/18/17 06:30 Problem List - Problems (1) Hyperglycemia Assessment/Plan: bgms insulin coverage diabetic diet check hgb a1c Code(s): R73.9 - HYPERGLYCEMIA, UNSPECIFIED (2) UTI (lower urinary tract infection) Assessment/Plan: on iv abx ucx Code(s): N39.0 - URINARY TRACT INFECTION, SITE NOT SPECIFIED (3) Parkinson disease Assessment/Plan: continue home meds Code(s): G20 - PARKINSON'S DISEASE Assessment/Plan
[2017-01-19] MEDS: SODIUM CHLORIDE 1,000 ML IV SCH (22:09)
[2017-01-19] MEDS: QUEtiapine FUMARATE 25 MG TABLET (FP) PO SCH (22:15)
[2017-01-19] MEDS: MIRTAZAPINE 15 MG TABLET (FP) PO SCH (22:15)
[2017-01-20] MEDS: INSULIN SLIDING SCALE (NOVOLOG) 1 VIAL SQ SCH ×4 (06:21→22:08)
[2017-01-20] MEDS: sitaGLIPtin PHOSPHATE 50 MG TABLET PO SCH (06:22)
[2017-01-20] MEDS: LISINOPRIL 5 MG TABLET (FP) PO SCH (09:25)
[2017-01-20] MEDS: amLODIPine BESYLATE 5 MG TABLET (FP) PO SCH (09:25)
[2017-01-20] MEDS: HEPARIN NA (PORCINE) 5,000 UNITS/ML 1ML VIAL SQ SCH ×2 (09:25→21:48)
[2017-01-20] MEDS: CARBIDOPA/LEVODOPA 25/100 TABLET (FP) PO SCH ×4 (09:25→21:48)
[2017-01-20] MEDS: FERROUS SO4 325 MG TABLET (FP) PO SCH (09:25)
[2017-01-20] MEDS: CHOLECALCIFEROL (VITAMIN D3) 1,000 UNIT TABLET (FP) PO SCH (09:27)
[2017-01-20] MEDS: cefTRIAXone 1 GM/50 ML BAG (PRE-DOCKED) IVPB SCH (09:28)
--- NOTE | 2017-01-20 11:15 | PN ---
Progress Note, Physician History of Present Illness: STABLE - Current Medication List Current Medications: Active Medications Acetaminophen (Tylenol -) 650 mg PO Q6H PRN PRN Reason: FEVER OR PAIN Amlodipine Besylate (Norvasc -) 5 mg PO DAILY [facility] Last Admin: 01/20/17 09:25 Dose: 5 mg Carbidopa/Levodopa (Sinemet 25/100 -) 1 each PO QID [facility] Last Admin: 01/20/17 09:25 Dose: 1 each Ceftriaxone Sodium (Rocephin 1gm Ivpb (Pre-Docked)) 1 gm IVPB DAILY [facility] Last Admin: 01/20/17 09:28 Dose: 1 gm Cholecalciferol (Vitamin D3 -) 1,000 unit PO DAILY [facility] Last Admin: 01/20/17 09:27 Dose: 1,000 unit Ferrous Sulfate (Feosol -) 325 mg PO DAILY [facility] Last Admin: 01/20/17 09:25 Dose: 325 mg Heparin Sodium (Porcine) (Heparin -) 5,000 unit SQ BID [facility] Last Admin: 01/20/17 09:25 Dose: 5,000 unit Sodium Chloride (Normal Saline -) 1,000 mls @ 50 mls/hr IV ASDIR [facility] Last Admin: 01/19/17 22:09 Dose: Not Given Insulin Aspart (Novolog Vial Sliding Scale -) 1 vial SQ TIDAC [facility] PRN Reason: Protocol Last Admin: 01/20/17 06:21 Dose: Not Given Insulin Aspart (Novolog Vial Sliding Scale -) 1 vial SQ HS [facility] PRN Reason: Protocol Last Admin: 01/19/17 22:14 Dose: Not Given Lisinopril (Prinivil) 5 mg PO DAILY [facility] Last Admin: 01/20/17 09:25 Dose: 5 mg Mirtazapine (Remeron -) 30 mg PO HS [facility] Last Admin: 01/19/17 22:15 Dose: 30 mg Quetiapine Fumarate (Seroquel -) 25 mg PO HS [facility] Last Admin: 01/19/17 22:15 Dose: 25 mg Sitagliptin Phosphate (Januvia -) 50 mg PO DAILY@0700 [facility] Last Admin: 01/20/17 06:22 Dose: 50 mg - Objective Vital Signs: Vital Signs Temperature 97.9 F 01/20/17 06:00 Pulse Rate 69 01/20/17 10:59 Respiratory Rate 18 01/20/17 06:00 Blood Pressure 129/75 01/20/17 06:00 O2 Sat by Pulse Oximetry (%) 95 01/20/17 10:59 Constitutional: Yes: No Distress HENT: Yes: Atraumatic Neck: Yes: Supple Cardiovascular: Yes: Regular Rate and Rhythm Respiratory: Yes: CTA Bilaterally Gastrointestinal: Yes: Normal Bowel Sounds Extremities: Yes: WNL Neurological: Yes: Alert, Oriented Labs: CBC, BMP 01/18/17 06:30 01/18/17 06:30 Problem List - Problems (1) Hyperglycemia Assessment/Plan: bgms insulin coverage diabetic diet check hgb a1c Code(s): R73.9 - HYPERGLYCEMIA, UNSPECIFIED (2) UTI (lower urinary tract infection) Assessment/Plan: on iv abx ucx Code(s): N39.0 - URINARY TRACT INFECTION, SITE NOT SPECIFIED (3) Parkinson disease Assessment/Plan: continue home meds Code(s): G20 - PARKINSON'S DISEASE Assessment/Plan
--- NOTE | 2017-01-20 11:39 | PN ---
Progress Note, Physician History of Present Illness: patient stable no new issues - Current Medication List Current Medications: Active Medications Acetaminophen (Tylenol -) 650 mg PO Q6H PRN PRN Reason: FEVER OR PAIN Amlodipine Besylate (Norvasc -) 5 mg PO DAILY [facility] Last Admin: 01/20/17 09:25 Dose: 5 mg Carbidopa/Levodopa (Sinemet 25/100 -) 1 each PO QID [facility] Last Admin: 01/20/17 09:25 Dose: 1 each Ceftriaxone Sodium (Rocephin 1gm Ivpb (Pre-Docked)) 1 gm IVPB DAILY [facility] Last Admin: 01/20/17 09:28 Dose: 1 gm Cholecalciferol (Vitamin D3 -) 1,000 unit PO DAILY [facility] Last Admin: 01/20/17 09:27 Dose: 1,000 unit Ferrous Sulfate (Feosol -) 325 mg PO DAILY [facility] Last Admin: 01/20/17 09:25 Dose: 325 mg Heparin Sodium (Porcine) (Heparin -) 5,000 unit SQ BID [facility] Last Admin: 01/20/17 09:25 Dose: 5,000 unit Sodium Chloride (Normal Saline -) 1,000 mls @ 50 mls/hr IV ASDIR [facility] Last Admin: 01/19/17 22:09 Dose: Not Given Insulin Aspart (Novolog Vial Sliding Scale -) 1 vial SQ TIDAC [facility] PRN Reason: Protocol Last Admin: 01/20/17 06:21 Dose: Not Given Insulin Aspart (Novolog Vial Sliding Scale -) 1 vial SQ HS [facility] PRN Reason: Protocol Last Admin: 01/19/17 22:14 Dose: Not Given Lisinopril (Prinivil) 5 mg PO DAILY [facility] Last Admin: 01/20/17 09:25 Dose: 5 mg Mirtazapine (Remeron -) 30 mg PO HS [facility] Last Admin: 01/19/17 22:15 Dose: 30 mg Quetiapine Fumarate (Seroquel -) 25 mg PO HS [facility] Last Admin: 01/19/17 22:15 Dose: 25 mg Sitagliptin Phosphate (Januvia -) 50 mg PO DAILY@0700 [facility] Last Admin: 01/20/17 06:22 Dose: 50 mg - Objective Vital Signs: Vital Signs Temperature 97.9 F 01/20/17 06:00 Pulse Rate 69 01/20/17 10:59 Respiratory Rate 18 01/20/17 06:00 Blood Pressure 129/75 01/20/17 06:00 O2 Sat by Pulse Oximetry (%) 95 01/20/17 10:59 Constitutional: Yes: No Distress, Calm Cardiovascular: Yes: Regular Rate and Rhythm Respiratory: Yes: Regular, CTA Bilaterally Gastrointestinal: Yes: Normal Bowel Sounds, Soft Musculoskeletal: Yes: WNL Extremities: Yes: WNL Labs: CBC, BMP 01/18/17 06:30 01/18/17 06:30 Assessment/Plan - Problems (1) Hyperglycemia Code(s): R73.9 - HYPERGLYCEMIA, UNSPECIFIED (2) UTI (lower urinary tract infection) Code(s): N39.0 - URINARY TRACT INFECTION, SITE NOT SPECIFIED (3) Parkinson disease Code(s): G20 - PARKINSON'S DISEASE plan patient doing well organism noted
[2017-01-20] MEDS ORDERED: INSULIN (NOVOLOG) ASPART 100 UNITS/ML 10ML VIAL ONE (11:51)
--- NOTE | 2017-01-20 13:58 | PN ---
Progress Note (short form) - Note Progress Note: Feels better No Nausea, no vomiting Vital Signs Period Temp Pulse Resp BP Sys/Ramírez Pulse Ox Last 24 Hr 97.9 F-98.4 F 67-79 18-18 123-146/75-84 95-98 PE: Aox3 Neck: Supple, No JVD HEENT: PERRL, EOMI Lungs: CTA CVS: S1S2 Abd: Benign, No HSM BS: present Ext: No edema Neuro: No focal deficit CMP Sodium 145 mmol/L (136-145) 01/18/17 06:30 Potassium 4.4 mmol/L (3.5-5.1) 01/18/17 06:30 Chloride 106 mmol/L (98-107) 01/18/17 06:30 Carbon Dioxide 33 mmol/L (21-32) H 01/18/17 06:30 Anion Gap 6 (8-16) L 01/18/17 06:30 BUN 30 mg/dL (7-18) H 01/18/17 06:30 Creatinine 1.0 mg/dL (0.55-1.02) 01/18/17 06:30 Creat Clearance w eGFR 53.48 (>60) 01/18/17 06:30 POC Glucometer 201 UNITS (()) 01/20/17 11:40 Random Glucose 207 mg/dL (74-106) H D 01/18/17 06:30 Calcium 8.1 mg/dL (8.5-10.1) L 01/18/17 06:30 Total Bilirubin 0.5 mg/dL (0.2-1.0) 01/18/17 06:30 AST 16 U/L (15-37) D 01/18/17 06:30 ALT 21 U/L (12-78) D 01/18/17 06:30 Alkaline Phosphatase 107 U/L (45-117) 01/18/17 06:30 Creatine Kinase 47 IU/L (26-192) 01/17/17 19:51 Troponin I < 0.02 ng/ml (0.00-0.05) 01/17/17 19:51 Total Protein 6.3 g/dl (6.4-8.2) L 01/18/17 06:30 Albumin 2.7 g/dl (3.4-5.0) L 01/18/17 06:30 Lipase 74 U/L (73-393) 01/17/17 18:38 Current Medications Generic Name Dose Route Start Last Admin Trade Name Olu PRN Reason Stop Dose Admin Acetaminophen 650 mg 01/17/17 22:24 Tylenol - PO Q6H PRN FEVER OR PAIN Amlodipine Besylate 5 mg 01/18/17 10:00 01/20/17 09:25 Norvasc - PO 5 mg DAILY [facility] Administration Carbidopa/Levodopa 1 each 01/18/17 10:00 01/20/17 13:34 Sinemet 25/100 - PO 1 each QID [facility] Administration Ceftriaxone Sodium 1 gm 01/18/17 10:00 01/20/17 09:28 Rocephin 1gm Ivpb (Pre-Docked) IVPB 1 gm DAILY [facility] Administration Cholecalciferol 1,000 unit 01/18/17 10:00 01/20/17 09:27 Vitamin D3 - PO 1,000 unit DAILY [facility] Administration Ferrous Sulfate 325 mg 01/18/17 10:00 01/20/17 09:25 Feosol - PO 325 mg DAILY [facility] Administration Heparin Sodium (Porcine) 5,000 unit 01/18/17 10:00 01/20/17 09:25 Heparin - SQ 5,000 unit BID [facility] Administration Sodium Chloride 1,000 mls @ 50 mls/hr 01/17/17 22:30 01/19/17 22:09 Normal Saline - IV Not Given ASDIR [facility] Insulin Aspart 1 vial 01/18/17 11:00 01/20/17 12:00 Novolog Vial Sliding Scale - SQ 4 units TIDAC [facility] Administration Protocol Insulin Aspart 1 vial 01/18/17 22:00 01/19/17 22:14 Novolog Vial Sliding Scale - SQ Not Given HS [facility] Protocol Lisinopril 5 mg 01/18/17 10:00 01/20/17 09:25 Prinivil PO 5 mg DAILY [facility] Administration Mirtazapine 30 mg 01/18/17 22:00 01/19/17 22:15 Remeron - PO 30 mg HS [facility] Administration Quetiapine Fumarate 25 mg 01/18/17 22:00 01/19/17 22:15 Seroquel - PO 25 mg HS [facility] Administration Sitagliptin Phosphate 50 mg 01/19/17 07:00 01/20/17 06:22 Januvia - PO 50 mg DAILY@0700 [facility] Administration AP; DM/Hyperglycemia BGM QACHS Nutrition consult noted Novolog SS coverage Januvia 50 mg QD Add Meformin 500 mg QD with dinner, Increase dose as necessary and as tolerated Check HbA1c, last one ordered on 01/17 still pending UTI: On ceftriaxone Management as per ID, Consult noted. Parkinson's Disease Problem List - Problems (1) Hyperglycemia Code(s): R73.9 - HYPERGLYCEMIA, UNSPECIFIED (2) Parkinson disease Code(s): G20 - PARKINSON'S DISEASE
[2017-01-20] MEDS: MIRTAZAPINE 15 MG TABLET (FP) PO SCH (21:47)
[2017-01-20] MEDS: SODIUM CHLORIDE 1,000 ML IV SCH (21:48)
[2017-01-20] MEDS: QUEtiapine FUMARATE 25 MG TABLET (FP) PO SCH (21:48)
[2017-01-21] MEDS: metFORMIN HCL 500 MG TABLET (FP) PO SCH (06:35)
[2017-01-21] MEDS: sitaGLIPtin PHOSPHATE 50 MG TABLET PO SCH (06:35)
[2017-01-21] MEDS: INSULIN SLIDING SCALE (NOVOLOG) 1 VIAL SQ SCH ×4 (06:36→22:59)
[2017-01-21 08:25] LABS: ALBUMIN 2.6 g/dl (3.4-5.0); ANION GAP 6 (8-16); CALCIUM 8.3 mg/dL (8.5-10.1); CO2 31 mmol/L (21-32); GLUCOSE,RANDOM 165 mg/dL (74-106); SGOT/AST 19 U/L (15-37); SGPT/ALT 11 U/L (12-78)
[2017-01-21 08:28] LABS: ALK PHOS 95 U/L (45-117); BILIRUBIN,TOTAL 0.3 mg/dL (0.2-1.0); COCKROFT - GAULT 101.4475; CREATININE 0.7 mg/dL (0.55-1.02); TOT PROT 6.2 g/dl (6.4-8.2)
[2017-01-21] MEDS: CHOLECALCIFEROL (VITAMIN D3) 1,000 UNIT TABLET (FP) PO SCH (10:00)
[2017-01-21] MEDS: FERROUS SO4 325 MG TABLET (FP) PO SCH (10:00)
[2017-01-21] MEDS: amLODIPine BESYLATE 5 MG TABLET (FP) PO SCH (10:00)
[2017-01-21] MEDS: LISINOPRIL 5 MG TABLET (FP) PO SCH (10:00)
[2017-01-21] MEDS: HEPARIN NA (PORCINE) 5,000 UNITS/ML 1ML VIAL SQ SCH ×3 (10:00→22:55)
[2017-01-21] MEDS: cefTRIAXone 1 GM/50 ML BAG (PRE-DOCKED) IVPB SCH (10:00)
[2017-01-21] MEDS: CARBIDOPA/LEVODOPA 25/100 TABLET (FP) PO SCH ×4 (10:00→22:54)
--- NOTE | 2017-01-21 14:24 | PN ---
Progress Note (short form) - Note Progress Note: Feels better No new complaints No Nausea, no vomiting Vital Signs Period Temp Pulse Resp BP Sys/Ramírez Pulse Ox Last 24 Hr 97.4 F-98.5 F 61-69 18-20 121-139/73-73 95 PE: Aox3 Neck: Supple, No JVD HEENT: PERRL, EOMI Lungs: CTA CVS: S1S2 Abd: Benign, No HSM BS: present Ext: No edema Neuro: No focal deficit CMP Sodium 141 mmol/L (136-145) 01/21/17 06:30 Potassium 4.6 mmol/L (3.5-5.1) 01/21/17 06:30 Chloride 104 mmol/L (98-107) 01/21/17 06:30 Carbon Dioxide 31 mmol/L (21-32) 01/21/17 06:30 Anion Gap 6 (8-16) L 01/21/17 06:30 BUN 23 mg/dL (7-18) H D 01/21/17 06:30 Creatinine 0.7 mg/dL (0.55-1.02) D 01/21/17 06:30 Creat Clearance w eGFR > 60 (>60) 01/21/17 06:30 POC Glucometer 199 UNITS (()) 01/21/17 12:14 Random Glucose 165 mg/dL (74-106) H D 01/21/17 06:30 Hemoglobin A1c % 8.4 % (4.8-6.0) H D 01/21/17 06:30 Calcium 8.3 mg/dL (8.5-10.1) L 01/21/17 06:30 Total Bilirubin 0.3 mg/dL (0.2-1.0) D 01/21/17 06:30 AST 19 U/L (15-37) 01/21/17 06:30 ALT 11 U/L (12-78) L D 01/21/17 06:30 Alkaline Phosphatase 95 U/L (45-117) 01/21/17 06:30 Creatine Kinase 47 IU/L (26-192) 01/17/17 19:51 Troponin I < 0.02 ng/ml (0.00-0.05) 01/17/17 19:51 Total Protein 6.2 g/dl (6.4-8.2) L 01/21/17 06:30 Albumin 2.6 g/dl (3.4-5.0) L 01/21/17 06:30 Lipase 74 U/L (73-393) 01/17/17 18:38 Current Medications Generic Name Dose Route Start Last Admin Trade Name Freq PRN Reason Stop Dose Admin Acetaminophen 650 mg 01/17/17 22:24 Tylenol - PO Q6H PRN FEVER OR PAIN Amlodipine Besylate 5 mg 01/18/17 10:00 01/21/17 10:00 Norvasc - PO 5 mg DAILY [facility] Administration Carbidopa/Levodopa 1 each 01/18/17 10:00 01/21/17 10:00 Sinemet 25/100 - PO 1 each QID [facility] Administration Ceftriaxone Sodium 1 gm 01/18/17 10:00 01/21/17 10:00 Rocephin 1gm Ivpb (Pre-Docked) IVPB 1 gm DAILY [facility] Administration Cholecalciferol 1,000 unit 01/18/17 10:00 01/21/17 10:00 Vitamin D3 - PO 1,000 unit DAILY [facility] Administration Ferrous Sulfate 325 mg 01/18/17 10:00 01/21/17 10:00 Feosol - PO 325 mg DAILY [facility] Administration Heparin Sodium (Porcine) 5,000 unit 01/18/17 10:00 01/21/17 10:03 Heparin - SQ Not Given BID [facility] Sodium Chloride 1,000 mls @ 50 mls/hr 01/17/17 22:30 01/20/17 21:48 Normal Saline - IV Not Given ASDIR [facility] Insulin Aspart 1 vial 01/18/17 11:00 01/21/17 12:14 Novolog Vial Sliding Scale - SQ 2 units TIDAC [facility] Administration Protocol Insulin Aspart 1 vial 01/18/17 22:00 01/20/17 22:08 Novolog Vial Sliding Scale - SQ 2 units HS [facility] Administration Protocol Lisinopril 5 mg 01/18/17 10:00 01/21/17 10:00 Prinivil PO 5 mg DAILY [facility] Administration Metformin HCl 500 mg 01/21/17 07:00 01/21/17 06:35 Glucophage - PO 500 mg ACBK [facility] Administration Mirtazapine 30 mg 01/18/17 22:00 01/20/17 21:47 Remeron - PO 30 mg HS [facility] Administration Quetiapine Fumarate 25 mg 01/18/17 22:00 01/20/17 21:48 Seroquel - PO 25 mg HS [facility] Administration Sitagliptin Phosphate 50 mg 01/19/17 07:00 01/21/17 06:35 Januvia - PO 50 mg DAILY@0700 [facility] Administration AP; DM/Hyperglycemia BGM QACHS Nutrition consult noted Novolog SS coverage Januvia 50 mg QD Meformin 500 mg QD, Started before breakfast, Continue same dose for now. HbA1c 8.4 UTI: On ceftriaxone Management as per ID, Consult noted. Parkinson's Disease Problem List - Problems (1) Hyperglycemia Code(s): R73.9 - HYPERGLYCEMIA, UNSPECIFIED (2) Parkinson disease Code(s): G20 - PARKINSON'S DISEASE
--- NOTE | 2017-01-21 17:25 | PN ---
Progress Note, Physician History of Present Illness: STABLE - Current Medication List Current Medications: Active Medications Acetaminophen (Tylenol -) 650 mg PO Q6H PRN PRN Reason: FEVER OR PAIN Amlodipine Besylate (Norvasc -) 5 mg PO DAILY [facility] Last Admin: 01/21/17 10:00 Dose: 5 mg Carbidopa/Levodopa (Sinemet 25/100 -) 1 each PO QID [facility] Last Admin: 01/21/17 15:01 Dose: 1 each Ceftriaxone Sodium (Rocephin 1gm Ivpb (Pre-Docked)) 1 gm IVPB DAILY [facility] Last Admin: 01/21/17 10:00 Dose: 1 gm Cholecalciferol (Vitamin D3 -) 1,000 unit PO DAILY [facility] Last Admin: 01/21/17 10:00 Dose: 1,000 unit Ferrous Sulfate (Feosol -) 325 mg PO DAILY [facility] Last Admin: 01/21/17 10:00 Dose: 325 mg Heparin Sodium (Porcine) (Heparin -) 5,000 unit SQ BID [facility] Last Admin: 01/21/17 10:03 Dose: Not Given Sodium Chloride (Normal Saline -) 1,000 mls @ 50 mls/hr IV ASDIR [facility] Last Admin: 01/20/17 21:48 Dose: Not Given Insulin Aspart (Novolog Vial Sliding Scale -) 1 vial SQ TIDAC [facility] PRN Reason: Protocol Last Admin: 01/21/17 12:14 Dose: 2 units Insulin Aspart (Novolog Vial Sliding Scale -) 1 vial SQ HS [facility] PRN Reason: Protocol Last Admin: 01/20/17 22:08 Dose: 2 units Lisinopril (Prinivil) 5 mg PO DAILY [facility] Last Admin: 01/21/17 10:00 Dose: 5 mg Metformin HCl (Glucophage -) 500 mg PO ACBK [facility] Last Admin: 01/21/17 06:35 Dose: 500 mg Mirtazapine (Remeron -) 30 mg PO HS [facility] Last Admin: 01/20/17 21:47 Dose: 30 mg Quetiapine Fumarate (Seroquel -) 25 mg PO HS [facility] Last Admin: 01/20/17 21:48 Dose: 25 mg Sitagliptin Phosphate (Januvia -) 50 mg PO DAILY@0700 [facility] Last Admin: 01/21/17 06:35 Dose: 50 mg - Objective Vital Signs: Vital Signs Temperature 98.9 F 01/21/17 17:12 Pulse Rate 77 01/21/17 17:12 Respiratory Rate 20 01/21/17 17:12 Blood Pressure 143/77 01/21/17 17:12 O2 Sat by Pulse Oximetry (%) 95 01/21/17 09:00 Constitutional: Yes: No Distress HENT: Yes: Atraumatic Neck: Yes: Supple Cardiovascular: Yes: Regular Rate and Rhythm Respiratory: Yes: CTA Bilaterally Gastrointestinal: Yes: Normal Bowel Sounds Extremities: Yes: WNL Neurological: Yes: Alert, Oriented Labs: CBC, BMP 01/18/17 06:30 01/21/17 06:30 Problem List - Problems (1) Hyperglycemia Assessment/Plan: bgms insulin coverage diabetic diet Code(s): R73.9 - HYPERGLYCEMIA, UNSPECIFIED (2) UTI (lower urinary tract infection) Assessment/Plan: completed abx course Code(s): N39.0 - URINARY TRACT INFECTION, SITE NOT SPECIFIED (3) Parkinson disease Assessment/Plan: continue home meds Code(s): G20 - PARKINSON'S DISEASE Assessment/Plan
--- NOTE | 2017-01-21 20:51 | DS ---
Physical Examination Vital Signs: Vital Signs Temperature 98.9 F 01/21/17 17:12 Pulse Rate 77 01/21/17 17:12 Respiratory Rate 20 01/21/17 17:12 Blood Pressure 143/77 01/21/17 17:12 O2 Sat by Pulse Oximetry (%) 95 01/21/17 09:00 Labs: CBC, BMP 01/18/17 06:30 01/21/17 06:30 Discharge Summary Reason For Visit: LOWER URINARY TRACT INFECTIOUS DISEASE Current Active Problems Chest pain (Acute) Hyperglycemia (Acute) Parkinson disease (Acute) UTI (lower urinary tract infection) (Acute) - Instructions Referrals: Aide Patino [Primary Care Provider] - - Home Medications Comprehensive Discharge Medication List: Ambulatory Orders Amlodipine Besylate [Norvasc -] 5 mg PO DAILY 01/17/17 Carbidopa/Levodopa [Carbidopa-Levodopa 25-100 Tab] 1 each PO QID 01/17/17 Cholecalciferol (Vitamin D3) [Vitamin D3] 1,000 unit PO DAILY 01/17/17 Ferrous Sulfate [Feosol] 325 mg PO DAILY 01/17/17 Lisinopril [Prinivil] 5 mg PO DAILY 01/17/17 Mirtazapine [Remeron -] 30 mg PO DAILY 01/17/17 Quetiapine Fumarate [Seroquel -] 25 mg PO HS 01/17/17 Metformin HCl [Glucophage -] 500 mg PO ACBK #30 tablet 01/21/17 Sitagliptin Phosphate [Januvia -] 50 mg PO DAILY@0700 #30 tablet 01/21/17 [facility]
[2017-01-21] MEDS: QUEtiapine FUMARATE 25 MG TABLET (FP) PO SCH (22:54)
[2017-01-21] MEDS: MIRTAZAPINE 15 MG TABLET (FP) PO SCH (22:55)
[2017-01-21] MEDS: SODIUM CHLORIDE 1,000 ML IV SCH (23:01)
[2017-01-22] MEDS: INSULIN SLIDING SCALE (NOVOLOG) 1 VIAL SQ SCH ×3 (06:19→18:31)
[2017-01-22] MEDS: sitaGLIPtin PHOSPHATE 50 MG TABLET PO SCH (06:19)
[2017-01-22] MEDS: metFORMIN HCL 500 MG TABLET (FP) PO SCH (06:19)
[2017-01-22] MEDS: HEPARIN NA (PORCINE) 5,000 UNITS/ML 1ML VIAL SQ SCH (09:35)
[2017-01-22] MEDS: LISINOPRIL 5 MG TABLET (FP) PO SCH (09:35)
[2017-01-22] MEDS: cefTRIAXone 1 GM/50 ML BAG (PRE-DOCKED) IVPB SCH (09:35)
[2017-01-22] MEDS: FERROUS SO4 325 MG TABLET (FP) PO SCH (09:35)
[2017-01-22] MEDS: CARBIDOPA/LEVODOPA 25/100 TABLET (FP) PO SCH ×3 (09:35→18:29)
[2017-01-22] MEDS: CHOLECALCIFEROL (VITAMIN D3) 1,000 UNIT TABLET (FP) PO SCH (09:35)
[2017-01-22] MEDS: amLODIPine BESYLATE 5 MG TABLET (FP) PO SCH (09:35)
--- NOTE | 2017-01-22 13:42 | PN ---
Progress Note, Physician History of Present Illness: patient stable no new issues - Current Medication List Current Medications: Active Medications Acetaminophen (Tylenol -) 650 mg PO Q6H PRN PRN Reason: FEVER OR PAIN Amlodipine Besylate (Norvasc -) 5 mg PO DAILY [facility] Last Admin: 01/22/17 09:35 Dose: 5 mg Carbidopa/Levodopa (Sinemet 25/100 -) 1 each PO QID [facility] Last Admin: 01/22/17 09:35 Dose: 1 each Ceftriaxone Sodium (Rocephin 1gm Ivpb (Pre-Docked)) 1 gm IVPB DAILY [facility] Last Admin: 01/22/17 09:35 Dose: 1 gm Cholecalciferol (Vitamin D3 -) 1,000 unit PO DAILY [facility] Last Admin: 01/22/17 09:35 Dose: 1,000 unit Ferrous Sulfate (Feosol -) 325 mg PO DAILY [facility] Last Admin: 01/22/17 09:35 Dose: 325 mg Heparin Sodium (Porcine) (Heparin -) 5,000 unit SQ BID [facility] Last Admin: 01/22/17 09:35 Dose: Not Given Sodium Chloride (Normal Saline -) 1,000 mls @ 50 mls/hr IV ASDIR [facility] Last Admin: 01/21/17 23:01 Dose: 50 mls/hr Insulin Aspart (Novolog Vial Sliding Scale -) 1 vial SQ TIDAC [facility] PRN Reason: Protocol Last Admin: 01/22/17 12:29 Dose: Not Given Insulin Aspart (Novolog Vial Sliding Scale -) 1 vial SQ HS [facility] PRN Reason: Protocol Last Admin: 01/21/17 22:59 Dose: 2 units Lisinopril (Prinivil) 5 mg PO DAILY [facility] Last Admin: 01/22/17 09:35 Dose: 5 mg Metformin HCl (Glucophage -) 500 mg PO ACBK [facility] Last Admin: 01/22/17 06:19 Dose: 500 mg Mirtazapine (Remeron -) 30 mg PO HS [facility] Last Admin: 01/21/17 22:55 Dose: 30 mg Quetiapine Fumarate (Seroquel -) 25 mg PO HS [facility] Last Admin: 01/21/17 22:54 Dose: 25 mg Sitagliptin Phosphate (Januvia -) 50 mg PO DAILY@0700 [facility] Last Admin: 01/22/17 06:19 Dose: 50 mg - Objective Vital Signs: Vital Signs Temperature 98 F 01/22/17 05:54 Pulse Rate 66 01/22/17 05:54 Respiratory Rate 20 01/22/17 05:54 Blood Pressure 125/82 01/22/17 05:54 O2 Sat by Pulse Oximetry (%) 95 01/21/17 21:00 Constitutional: Yes: No Distress, Calm Neck: Yes: Supple Cardiovascular: Yes: Regular Rate and Rhythm Respiratory: Yes: Regular, CTA Bilaterally Musculoskeletal: Yes: WNL Extremities: Yes: WNL Neurological: Yes: Alert, Oriented Labs: CBC, BMP 01/18/17 06:30 01/21/17 06:30 Assessment/Plan - Problems (1) Hyperglycemia Code(s): R73.9 - HYPERGLYCEMIA, UNSPECIFIED (2) UTI (lower urinary tract infection) Code(s): N39.0 - URINARY TRACT INFECTION, SITE NOT SPECIFIED (3) Parkinson disease Code(s): G20 - PARKINSON'S DISEASE plan patient doing well organism noted will not need any more further abx when she goes home rest as per primary
--- NOTE | 2017-01-22 13:43 | PN ---
Progress Note, Physician History of Present Illness: stable patient has no complaints - Current Medication List Current Medications: Active Medications Acetaminophen (Tylenol -) 650 mg PO Q6H PRN PRN Reason: FEVER OR PAIN Amlodipine Besylate (Norvasc -) 5 mg PO DAILY [facility] Last Admin: 01/22/17 09:35 Dose: 5 mg Carbidopa/Levodopa (Sinemet 25/100 -) 1 each PO QID [facility] Last Admin: 01/22/17 09:35 Dose: 1 each Ceftriaxone Sodium (Rocephin 1gm Ivpb (Pre-Docked)) 1 gm IVPB DAILY [facility] Last Admin: 01/22/17 09:35 Dose: 1 gm Cholecalciferol (Vitamin D3 -) 1,000 unit PO DAILY [facility] Last Admin: 01/22/17 09:35 Dose: 1,000 unit Ferrous Sulfate (Feosol -) 325 mg PO DAILY [facility] Last Admin: 01/22/17 09:35 Dose: 325 mg Heparin Sodium (Porcine) (Heparin -) 5,000 unit SQ BID [facility] Last Admin: 01/22/17 09:35 Dose: Not Given Sodium Chloride (Normal Saline -) 1,000 mls @ 50 mls/hr IV ASDIR [facility] Last Admin: 01/21/17 23:01 Dose: 50 mls/hr Insulin Aspart (Novolog Vial Sliding Scale -) 1 vial SQ TIDAC [facility] PRN Reason: Protocol Last Admin: 01/22/17 12:29 Dose: Not Given Insulin Aspart (Novolog Vial Sliding Scale -) 1 vial SQ HS [facility] PRN Reason: Protocol Last Admin: 01/21/17 22:59 Dose: 2 units Lisinopril (Prinivil) 5 mg PO DAILY [facility] Last Admin: 01/22/17 09:35 Dose: 5 mg Metformin HCl (Glucophage -) 500 mg PO ACBK [facility] Last Admin: 01/22/17 06:19 Dose: 500 mg Mirtazapine (Remeron -) 30 mg PO HS [facility] Last Admin: 01/21/17 22:55 Dose: 30 mg Quetiapine Fumarate (Seroquel -) 25 mg PO HS [facility] Last Admin: 01/21/17 22:54 Dose: 25 mg Sitagliptin Phosphate (Januvia -) 50 mg PO DAILY@0700 [facility] Last Admin: 01/22/17 06:19 Dose: 50 mg - Objective Vital Signs: Vital Signs Temperature 98 F 01/22/17 05:54 Pulse Rate 66 01/22/17 05:54 Respiratory Rate 20 01/22/17 05:54 Blood Pressure 125/82 01/22/17 05:54 O2 Sat by Pulse Oximetry (%) 95 01/21/17 21:00 Constitutional: Yes: No Distress, Calm Cardiovascular: Yes: Regular Rate and Rhythm Respiratory: Yes: Regular, CTA Bilaterally Gastrointestinal: Yes: Normal Bowel Sounds, Soft Musculoskeletal: Yes: Other Extremities: Yes: WNL Neurological: Yes: Alert, Oriented Psychiatric: Yes: Alert Labs: CBC, BMP 01/18/17 06:30 01/21/17 06:30 Assessment/Plan - Problems (1) Hyperglycemia Code(s): R73.9 - HYPERGLYCEMIA, UNSPECIFIED (2) UTI (lower urinary tract infection) Code(s): N39.0 - URINARY TRACT INFECTION, SITE NOT SPECIFIED (3) Parkinson disease Code(s): G20 - PARKINSON'S DISEASE plan stop all abx after today no abx on discharge
--- NOTE | 2017-01-22 16:19 | DS ---
Physical Examination Vital Signs: Vital Signs Temperature 98.5 F 01/22/17 16:02 Pulse Rate 81 01/22/17 16:02 Respiratory Rate 16 01/22/17 16:02 Blood Pressure 136/85 01/22/17 16:02 O2 Sat by Pulse Oximetry (%) 95 01/21/17 21:00 Constitutional: Yes: No Distress HENT: Yes: Atraumatic Neck: Yes: Supple Cardiovascular: Yes: Regular Rate and Rhythm Respiratory: Yes: CTA Bilaterally Gastrointestinal: Yes: Normal Bowel Sounds Extremities: Yes: WNL Neurological: Yes: Alert, Oriented Labs: CBC, BMP 01/18/17 06:30 01/21/17 06:30 Discharge Summary Reason For Visit: LOWER URINARY TRACT INFECTIOUS DISEASE Current Active Problems Chest pain (Acute) Hyperglycemia (Acute) Parkinson disease (Acute) UTI (lower urinary tract infection) (Acute) - Instructions Referrals: Aide Patino [Primary Care Provider] - - Home Medications Comprehensive Discharge Medication List: Ambulatory Orders Amlodipine Besylate [Norvasc -] 5 mg PO DAILY 01/17/17 Carbidopa/Levodopa [Carbidopa-Levodopa 25-100 Tab] 1 each PO QID 01/17/17 Cholecalciferol (Vitamin D3) [Vitamin D3] 1,000 unit PO DAILY 01/17/17 Ferrous Sulfate [Feosol] 325 mg PO DAILY 01/17/17 Lisinopril [Prinivil] 5 mg PO DAILY 01/17/17 Mirtazapine [Remeron -] 30 mg PO DAILY 01/17/17 Quetiapine Fumarate [Seroquel -] 25 mg PO HS 01/17/17 Metformin HCl [Glucophage -] 500 mg PO ACBK #30 tablet 01/21/17 Sitagliptin Phosphate [Januvia -] 50 mg PO DAILY@0700 #30 tablet 01/21/17 [facility]
[2017-01-22 17:13] VITALS: BP 145/68; PULSE 73; TEMP 98.4
== END 2017-01-22 19:44 | disposition home health service (06) | DRG 638 ==
LOC: JER 17:27 → JERBED 21:37 → J8W 22:49
PROVIDERS: ADMIT Internal Medicine; ATTEND Internal Medicine
DX: E11.65 Type 2 diabetes mellitus with hyperglycemia (principal); N39.0 Urinary tract infection, site not specified; G20 Parkinson's disease; R07.9 Chest pain, unspecified; I10 Essential (primary) hypertension
CPT/HCPCS: 36415; 71010-TC; 80053; 81003; 81015; 82009; 82550; 83036; 83690; 84484; 85025; 87086; 87186; 93005; 93010; 99284-25; J1644

== ENCOUNTER 2018-09-25 15:23 | Emergency (ER) | payer OTHER ==
--- NOTE | 2018-09-25 15:27 | PDOC ---
History of Present Illness - General Stated Complaint: fall Time Seen by Provider: 09/25/18 15:27 History Source: Patient Exam Limitations: No Limitations - History of Present Illness Initial Comments: 09/25/18 15:28 This is an 83 yo F with PMH of Parkinsons disease, htn, and niddm, who presents s/p fall. Patient was being moved from wheelchair to bed by her aid when she suffered a witnessed mechanical fall. she did not hit her head. Due to baseline dementia patient is unable to provide much history but complains of vague pain in neck, upper back, l elbow, b/l hips and knees. BGM in EMS was 500. Per daughter she is at mental status baseline (answers some questions appropriately, alert) and has never had DKA. She has not eaten since breakfast and her medications are given out by her aid. 09/25/18 16:12 Past History - Past Medical History Allergies/Adverse Reactions: Allergies Allergy/AdvReac Type Severity Reaction Status Date / Time No Known Allergies Allergy Verified 09/25/18 15:32 Home Medications: Ambulatory Orders Amlodipine Besylate [Norvasc -] 5 mg PO DAILY 01/17/17 Carbidopa/Levodopa [Carbidopa-Levodopa 25-100 Tab] 1 each PO QID 01/17/17 Cholecalciferol (Vitamin D3) [Vitamin D3] 1,000 unit PO DAILY 01/17/17 Ferrous Sulfate [Feosol] 325 mg PO DAILY 01/17/17 Lisinopril [Prinivil] 5 mg PO DAILY 01/17/17 Mirtazapine [Remeron -] 30 mg PO DAILY 01/17/17 Quetiapine Fumarate [Seroquel -] 25 mg PO HS 01/17/17 Sitagliptin Phosphate [Januvia -] 50 mg PO DAILY@0700 #30 tablet 01/21/17 metFORMIN HCL [Glucophage -] 500 mg PO ACBK #30 tablet 01/21/17 Miscellaneous Medical Supply [Outpatient Order] 1 each ASDIR #1 misc Miscellaneous Medical Supply [Outpatient Order] 1 each ASDIR #1 misc Miscellaneous Medical Supply [Outpatient Order] 1 each BID #1 box 01/22/17 Anemia: Yes Asthma: No Cancer: Yes (cervical, gallbladder) Cardiac Disorders: Yes (htn) CVA: No COPD: No CHF: No Dementia: No Diabetes: Yes (no meds) GI Disorders: Yes (EGD) Disorders: No HTN: Yes (no meds) Hypercholesterolemia: Yes Kidney Stones: Yes Liver Disease: No Psychiatric Problems: Yes (depression) Seizures: No Thyroid Disease: No - Surgical History Abdominal Surgery: Yes (colon resec 2013) Appendectomy: No Cardiac Surgery: No Cholecystectomy: Yes Lung Surgery: No Neurologic Surgery: No - Immunization History Td Vaccination: Yes TDAP Vaccination: Yes Immunization Up to Date: Yes - Suicide/Smoking/Psychosocial Hx Smoking Status: No Smoking History: Never smoked Years of Tobacco Use: 0 Have you smoked in the past 12 months: No Number of Cigarettes Smoked Daily: 0 Cigars Per Day: 0 Hx Alcohol Use: No Drug/Substance Use Hx: No Substance Use Type: None Hx Substance Use Treatment: No Review of Systems - Review of Systems Able to Perform ROS?: No (dementia ) *Physical Exam - Physical Exam General Appearance: Yes: Nourished, Appropriately Dressed. No: Apparent Distress HEENT: positive: EOMI, Normal Voice, Symmetrical, Other (no franklin sign or racoon eyes. ) Neck: positive: Tender (posterior ), Trachea midline, Supple, Other (no limitation in ROM ). negative: Rigid, Tender lateral Respiratory/Chest: positive: Lungs Clear, Normal Breath Sounds. negative: Chest Tender Cardiovascular: positive: Regular Rhythm, Regular Rate, S1, S2. negative: Edema Gastrointestinal/Abdominal: positive: Normal Bowel Sounds, Flat, Soft, Other ( obese ). negative: Tender, Mass Musculoskeletal: negative: CVA Tenderness Extremity: positive: Tender (mild b/l hip and knee tenderness ) Integumentary: positive: Dry, Warm Neurologic: positive: [employer] II-XII NML intact (grossly ) ED Treatment Course - LABORATORY CBC & Chemistry Diagram: 09/25/18 16:00 09/25/18 16:00 - ADDITIONAL ORDERS Additional order review: 09/25/18 17:46 witnessed fall, f/u xrays of b/l hips, knees, L elbow, t spine, CT of cspine bgm 500, will treat with IVF awaiting cmp. will give 10 u insulin push *DC/Admit/Observation/Transfer Diagnosis at time of Disposition: Hyperglycemia Fall Qualifiers: Encounter type: initial encounter Qualified Code(s): W19.XXXA - Unspecified fall, initial encounter - Referrals - Patient Instructions - Post Discharge Activity
[2018-09-25 15:34] VITALS: TEMP 97; BMI 40.7
[2018-09-25] MEDS ORDERED: SODIUM CHLORIDE 0.9% 500 ML INFUS.BAG IV ONE (15:50)
--- NOTE | 2018-09-25 15:54 | PDOC ---
Attending Attestation - HPI HPI: 09/25/18 16:59 The patient is an 83 year old female with a significant past medical history of parkinson's disease, HTN, DM, who presents to the emergency department today accompanied by daughter and aid s/p fall. She states she was in her home trying to sit into her wheelchair when she slipped out and fell on her buttox. As per aid, patient was not on the fall longer than a half hour. Daughter states the patient did not take her 2pm medications and PO was a breakfast at 730am and a yogurt at 12:30pm. Patient states she feels good at this point. The patient denies chest pain, shortness of breath, headache and dizziness. Denies fever, chills, nausea, vomit, diarrhea and constipation. Denies dysuria, frequency, urgency and hematuria. Allergies: NKA Past surgical history: Colon resec 2014, cholecystectomy Social history: None reported - Physicial Exam PE: 09/25/18 17:03 GENERAL: (+) weak. (+) Morbidly obese. The patient is in no acute distress. HEAD: Normal with no signs of trauma. EYES: PERRLA, EOMI, sclera anicteric, conjunctiva clear. ENT: Ears normal, nares patent, oropharynx clear without exudates. Moist mucous membranes. NECK: Normal range of motion, supple without lymphadenopathy, JVD, or masses. LUNGS: Breath sounds equal, clear to auscultation bilaterally. No wheezes, and no crackles. HEART:Regular rate and rhythm, normal S1 and S2 without murmur, rub or gallop. ABDOMEN: Soft, nontender, normoactive bowel sounds. No guarding, no rebound. No masses palpable. EXTREMITIES: Normal range of motion, no edema. No clubbing or cyanosis. No erythema, or tenderness. NEUROLOGICAL: Cranial nerves II through XII grossly intact. Normal speech. No focal neurological deficits. MUSCULOSKELETAL: Back non-tender to palpation, no CVA tenderness SKIN: Warm, Dry, normal turgor, no rashes or lesions noted. <Carline Friedman - Last Filed: 09/25/18 17:15> - Resident Resident Name: Janet Abdul - ED Attending Attestation I have performed the following: I have examined & evaluated the patient, The case was reviewed & discussed with the resident, I agree w/resident's findings & plan, Exceptions are as noted - Medical Decision Making 09/25/18 17:08 83 yo F s/p slip and fall from wheelchair while at home No chest pain No shortness of breath No palpitations No focal weakness or numbness Pt has no complaints of pain Will do: Labs CT Xray UA ReAssess 09/25/18 17:40 Laboratory Tests 09/25/18 09/25/18 15:33 16:00 WBC 7.9 Hgb 16.1 H Hct 48.7 H D Plt Count 124 L D POC Glucometer 510 <Reina Diamond - Last Filed: 09/25/18 17:40> Attestations - Attestations 09/25/18 17:02 Documentation prepared by Carline Friedman, acting as infertility medical assistant for Reina Diamond MD. <Carline Friedman - Last Filed: 09/25/18 17:15>
[2018-09-25 16:08] LABS: BASO % 0.3 % (0-2.0); EOS % 0.3 % (0-4.5); HEMATOCRIT 48.7 % (32.4-45.2); HEMOGLOBIN 16.1 GM/dL (10.7-15.3); LYMPH % 5.5 % (8-40); MCH 31.4 pg (25.7-33.7); MCHC 33.1 g/dl (32.0-36.0); MEAN CELL VOLUME 94.9 fl (80-96); MEAN PLT VOLUME 10.8 fl (7.5-11.1); MONO % 7.9 % (3.8-10.2); PLATELET COUNT 124 K/MM3 (134-434); RBC 5.14 M/mm3 (3.60-5.2); RDW 14.9 % (11.6-15.6); WHITE BLOOD COUNT 7.9 K/mm3 (4.0-10.0)
[2018-09-25] MEDS ORDERED: INSULIN REGULAR HUMAN 100 UNITS/ML *VIAL IVPUSH ONE (16:32)
[2018-09-25] MEDS ORDERED: INSULIN REGULAR HUMAN 100 UNITS/ML *VIAL ONE (16:36)
--- NOTE | 2018-09-25 17:51 | PDOC ---
*Physical Exam - Vital Signs Last Vital Signs Temp Pulse Resp BP Pulse Ox 97.0 F L 91 H 18 133/84 96 09/25/18 15:25 09/25/18 15:25 09/25/18 15:25 09/25/18 15:25 09/25/18 15:25 - Physical Exam Comments: 09/25/18 17:51 GENERAL: Awake, alert, and oriented to self. Patient responsive to questions. HEAD: No signs of trauma, normocephalic, atraumatic EYES: PERRLA, EOMI, sclera anicteric, conjunctiva clear ENT: Auricles normal inspection, hearing grossly normal, nares patent, oropharynx clear without exudates. Moist mucosa NECK: Normal ROM, supple, no lymphadenopathy, JVD, or masses LUNGS: No distress, speaks full sentences, clear to auscultation bilaterally HEART: Regular rate and rhythm, normal S1 and S2, no murmurs, rubs or gallops, peripheral pulses normal and equal bilaterally. ABDOMEN: Soft, nontender, normoactive bowel sounds. No guarding, no rebound. No masses EXTREMITIES : Normal inspection, Normal range of motion, no edema. No clubbing or cyanosis. NEUROLOGICAL: Cranial nerves II through XII grossly intact. Normal speech, no focal sensorimotor deficits SKIN: Warm, Dry, normal turgor, no rashes or lesions noted ED Treatment Course - LABORATORY CBC & Chemistry Diagram: 09/25/18 16:00 09/25/18 20:40 - ADDITIONAL ORDERS Additional order review: Laboratory Results 09/25/18 09/25/18 16:00 15:33 Sodium Cancelled Potassium Cancelled Chloride Cancelled Carbon Dioxide Cancelled Anion Gap Cancelled BUN Cancelled Creatinine Cancelled Creat Clearance w eGFR Cancelled POC Glucometer 510 Random Glucose Cancelled Calcium Cancelled Total Bilirubin Cancelled AST Cancelled ALT Cancelled Alkaline Phosphatase Cancelled Creatine Kinase Cancelled Troponin I Cancelled Total Protein Cancelled Albumin Cancelled 09/25/18 09/25/18 16:00 15:33 RBC 5.14 MCV 94.9 MCHC 33.1 RDW 14.9 MPV 10.8 Neutrophils % 86.0 H Lymphocytes % 5.5 L D Monocytes % 7.9 Eosinophils % 0.3 D Basophils % 0.3 POC Glucometer 510 - Medications Given in the ED: ED Medications Discontinued Medications Generic Name Dose Route Start Last Admin Trade Name Freq PRN Reason Stop Dose Admin Insulin Human Regular 10 units 09/25/18 16:32 09/25/18 16:39 Novolin R Vial *For Ivpush Or Iv Drip Only* IVPUSH 09/25/18 16:33 10 units ONCE ONE Administration Sodium Chloride 1,000 ml 09/25/18 15:50 09/25/18 16:09 Normal Saline - IV 09/25/18 15:51 1,000 ml ONCE ONE Administration Medical Decision Making - Medical Decision Making 09/25/18 17:46 83 yo F with h/o Parkinsons Dz., HTN, NIDDM, who p/w witnessed mechanical fall during transfer. Denies head/neck trauma, LOC, convulsions. Received signout from Dr. Abdul. Vitals wnl, AF, A&O x self ( baseline). Physical exam unremarkable. EMS reports BS~500. Assessing for DKA, HHS, Hyperglycemia. Will also assess for VBI/TIA, cardiac dysarrythmias, electrolyte abnml, metabolic and toxic derangements, acid-base disturbances, infection. ED course notable for 10 U Insulin. Pending CBC,CMP,CTH,UA. 09/25/18 17:54 Ed Course : 09/25/18 17:55 H/H: 16/48 PLT: 127 09/25/18 19:30 BS improved to 218 09/25/18 21:11 EKG: NSR with PAC's. LAD. Absent WERNER, STD. Normal interval duration and axis. Poor R wave progression. 09/25/18 22:07 CMP: Unremarkable Trop: Neg Glu: 263 09/25/18 22:08 CTH: Neg C-SPINE: Neg 09/25/18 22:53 Patient wt. bearing w/out difficulty. Home health aide and daughter at bedside. Denies pain Radiographs with absent obvious bony deformity, fracture dislocation Stable for d/c with return precautions. Patient to be discharged to home health assistance *DC/Admit/Observation/Transfer Diagnosis at time of Disposition: Hyperglycemia Fall Qualifiers: Encounter type: initial encounter Qualified Code(s): W19.XXXA - Unspecified fall, initial encounter - Discharge Dispostion Disposition: HOME Condition at time of disposition: Stable Decision to Admit order: No - Referrals - Patient Instructions Printed Discharge Instructions: How to Prevent Falls Additional Instructions: Please return to the emergency department with any new or worsening symptoms or concerns. Please follow up with your primary care physician within 72 hours. - Post Discharge Activity - Attestations Physician Attestion: 09/25/18 22:56 I attest to the information provided in this note.
[2018-09-25 21:30] LABS: ALBUMIN 3.5 g/dl (3.4-5.0); ALK PHOS 106 U/L (45-117); ANION GAP 7 MMOL/L (8-16); BILIRUBIN,TOTAL 0.5 mg/dL (0.2-1); BLOOD UREA NITROGEN 26 mg/dL (7-18); CHLORIDE 102 mmol/L (98-107); CO2 29 mmol/L (21-32); CREATININE 1.1 mg/dL (0.55-1.3); GLUCOSE,RANDOM 263 mg/dL (74-106); POTASSIUM 4.8 mmol/L (3.5-5.1); SGOT/AST 18 U/L (15-37); SGPT/ALT 12 U/L (13-61); SODIUM 138 mmol/L (136-145)
[2018-09-25 22:21] VITALS: BP 126/74; PULSE 84
--- NOTE | 2018-09-26 13:18 | EKG ---
Test Reason : Blood Pressure : / mmHG Vent. Rate : 094 BPM Atrial Rate : 094 BPM P-R Int : 148 ms QRS Dur : 108 ms QT Int : 352 ms P-R-T Axes : 035 -45 090 degrees QTc Int : 440 ms POOR DATA QUALITY, INTERPRETATION MAY BE ADVERSELY AFFECTED SINUS RHYTHM WITH PREMATURE ATRIAL COMPLEXES WITH ABERRANT CONDUCTION LEFT AXIS DEVIATION NONSPECIFIC T WAVE ABNORMALITY ABNORMAL ECG WHEN COMPARED WITH ECG OF 17-JAN-2017 19:10, ABERRANT CONDUCTION IS NOW PRESENT Confirmed by KEVIN LINDO, LLOYD ([id number]) on 09/26/2018 1:18:30 PM Referred By: Confirmed By:LLOYD BROWN MD
== END 2018-09-25 23:53 | disposition home or self-care (01) ==
LOC: JER 15:23
PROC: 3E033VG Introduction of Insulin into Peripheral Vein, Percutaneous Approach (ICD-10-PCS; principal; 2018-09-25)
DX: E11.65 Type 2 diabetes mellitus with hyperglycemia (principal); I10 Essential (primary) hypertension; E78.00 Pure hypercholesterolemia, unspecified; D64.9 Anemia, unspecified; K21.9 Gastro-esophageal reflux disease without esophagitis; F32.9 Major depressive disorder, single episode, unspecified; Z87.442 Personal history of urinary calculi; Z79.84 Long term (current) use of oral hypoglycemic drugs; W05.0XXA Fall from non-moving wheelchair, initial encounter; Y93.89 Activity, other specified; Y92.032 Bedroom in apartment as the place of occurrence of the external cause
CPT/HCPCS: 36415; 70450-TC; 72070-TC-FY; 72125-TC; 73070-TC-LT-FY; 73523-TC-FY; 73560-TC-LT-FY; 73560-TC-RT-FY; 80053; 82550; 82962; 84484; 85025; 93005; 93010; 99283-25

== ENCOUNTER 2022-07-03 09:14 | Emergency (ER) | payer OTHER ==
[2022-07-03 10:41] VITALS: BP 0/0; PULSE 0; RESP 0; TEMP 0; BMI 47.0
== END 2022-07-03 10:10 | disposition expired ==
LOC: JER 09:14
DX: I46.9 Cardiac arrest, cause unspecified (principal)
CPT/HCPCS: 82962; 99283-25